=== PATIENT | female | born 1935 | race Caucasian/White ===

== ENCOUNTER 2017-06-24 14:56 | Inpatient (IN) ==
--- NOTE | 2017-06-24 16:55 | Emergency Department Note ---
Disposition Clinical Impression: Sinus bradycardia, persistent, Hyponatremia, Chronic kidney disease, stage III (moderate) Syncope Qualifiers: Syncope type: unspecified Qualified Code(s): R55 - Syncope and collapse COPD (chronic obstructive pulmonary disease) Qualifiers: COPD type: unspecified COPD Qualified Code(s): J44.9 - Chronic obstructive pulmonary disease, unspecified Disposition: Admitted As Inpatient Referrals: Abbi Lemon DO [Primary Care Provider] - Forms: ED Satisfaction Letter General Adult HPI - General Chief complaint: ED Dizziness Stated complaint: Dizzy/Nausea/Low HR Time Seen by Provider: 06/24/17 16:41 Source: patient, family Mode of arrival: wheelchair Limitations: no limitations Nursing Notes Reviewed: Yes Vital Signs Reviewed: Yes - History of Present Illness HPI Narrative: Patient is an 81-year-old white female with a history of hypertension hyperlipidemia, COPD, coronary artery disease with prior IN who is brought to the emergency department today from her extended care facility after she had a syncopal episode in the dining room while having lunch today. Patient states this morning she was feeling fine and had no complaints she has actually been participating in therapy and doing quite well over the past 3-4 days and then during her regular morning blood pressure check one of the nurses noticed that her blood pressure was elevated they report 180s over 1 teens. She states she was given a dose of clonidine in addition to her normal medications that she takes in the morning for blood pressure. Patient states she was hungry so she ambulated down to the cafeteria and was sitting starting to E her tray when she had a syncopal episode. Patient reports that when she awoke the nurse was there next to her she had not fallen out of her chair sustained any trauma. Patient states that just before the episode she felt a sudden substernal chest tightening sensation that was nonradiating. She denied any diaphoresis, no shortness of breath at that time, no radiation to the back or abdomen. No fevers chills or preceding URI symptoms. Patient states now currently she is not having any pain pressure or heaviness in her chest but she just feels mild shortness of breath at rest. Patient is bradycardic here with a stable blood pressure and in no acute distress. Patient's daughters at bedside and states that about 10 days ago she had mild cold and congestion and a transient episode of some vomiting that lasted for approximately 24-36 hours and resolved but has been doing well since that time. Pain Scale: 0 - Related Data Home Medications Medication Instructions Recorded Confirmed Atorvastatin Calcium [Lipitor] 20 mg PO HS 06/29/15 06/24/17 Clopidogrel [Plavix] 75 mg PO DAILY 06/29/15 06/24/17 Isosorbide DInitrate [Isosorbide 10 mg PO TID 06/29/15 06/24/17 Dinitrate] Losartan Potassium [Cozaar] 100 mg PO DAILY 06/29/15 06/24/17 Metoprolol XL (24 HR) Succ [Toprol 25 mg PO DAILY 06/29/15 06/24/17 Xl] Nitroglycerin [Nitrostat] 0.4 mg SL Q5M PRN 06/29/15 06/24/17 amLODIPine [Norvasc] 5 mg PO DAILY 06/29/15 06/24/17 cloNIDine HCl [Clonidine HCl] 0.2 mg PO Q8H PRN 06/29/15 06/24/17 Cholecalciferol (D-3) [Vitamin D] 2,000 unit PO DAILY 01/22/16 06/24/17 Acetaminophen [Tylenol] 325 mg PO PER PKG DI PRN 06/24/17 06/24/17 Aspirin Enteric Coated [Aspirin EC] 325 mg PO DAILY 06/24/17 06/24/17 Benzonatate [Tessalon] 100 mg PO TID PRN 06/24/17 06/24/17 Cetirizine HCl [Zyrtec] 10 mg PO DAILY 06/24/17 06/24/17 Ibuprofen [Motrin] 200 mg PO PER PKG DI PRN 06/24/17 06/24/17 Loperamide HCl [Imodium A-D] 2 mg PO PER PKG DI PRN 06/24/17 06/24/17 Loratadine [Claritin] 10 mg PO DAILY 06/24/17 06/24/17 MOM Conc [Milk of Magnesia Conc] 30 ml PO PER PKG DI PRN 06/24/17 06/24/17 Mag Hydrox/Al Hydrox/Simeth 15 ml PO PER PKG DI PRN 06/24/17 06/24/17 [Antacid Suspension] [place]row-3/Dha/Epa/Fish Oil [Fish Oil 1,000 mg PO DAILY 06/24/17 06/24/17 1,000 mg Softgel] Ranitidine HCl [Zantac] 150 mg PO BID 06/24/17 06/24/17 Triamcinolone Acet 0.1% CRM 1 appl TP BID PRN 06/24/17 06/24/17 [Kenalog] Allergies Allergy/AdvReac Type Severity Reaction Status Date / Time diphenhydramine Allergy Hives Verified 06/24/17 17:06 [From Benadryl Allergy] penicillin V Allergy Rash Verified 06/24/17 17:06 Albumin Colloid, Human AdvReac See Verified 06/24/17 19:24 Comments albuterol AdvReac See Verified 06/24/17 19:24 Comments Corticosteroids AdvReac See Verified 06/24/17 19:24 (Glucocorticoids) Comments latex AdvReac See Verified 06/24/17 19:24 Comments lidocaine AdvReac See Verified 06/24/17 19:24 Comments metoclopramide [From Reglan] AdvReac Numbness Verified 06/24/17 17:06 ivp Allergy See Uncoded 06/24/17 17:06 Comments All systems ED: reviewed and negative except as stated. Review of Systems: As Per HPI Constitutional: Denies: fever, chills, weakness Eyes: Denies: vision change ENT ED: Denies: congestion Cardiovascular: Reports: chest pain, syncope. Denies: palpitations, dyspnea on exertion, orthopnea, edema, paroxysmal nocturnal dyspnea Respiratory: Reports: dyspnea. Denies: cough, wheezes, hemoptysis, stridor, sputum production Gastrointestinal: Denies: abdominal pain, nausea, vomiting, diarrhea Genitourinary: Denies: urgency, dysuria, frequency Musculoskeletal: Denies: back pain, neck pain Integumentary: Denies: rash Neurological: Denies: headache, weakness, numbness, paresthesias, confusion, vertigo Past Medical History - Past Medical History Medical history: Reports: aortic aneurysm, COPD, hepatitis, hyperlipidemia, hypertension, myocardial infarction Surgical history: Reports: other Psychiatric history: Reports: bipolar - Social History Smoking Status: Former smoker Smokeless Tobacco Status: No Alcohol use: Reports: none Drug use: Reports: none Physical Exam - General Limitations: no limitations General appearance: alert, in no apparent distress - Head Head exam: atraumatic, normocephalic, normal inspection - Eye Eye exam: Present: normal appearance, PERRL, EOMI. Absent: scleral icterus - ENT ENT exam: normal exam, normal oropharynx, mucous membranes moist, TM's normal bilaterally - Neck Neck exam: Present: normal inspection, full ROM. Absent: lymphadenopathy, thyromegaly - Chest Chest inspection: Present: normal inspection, symmetric chest wall rise. Absent : tenderness - Respiratory Respiratory exam: Present: normal lung sounds bilaterally. Absent: respiratory distress, wheezes, stridor, accessory muscle use - Cardiovascular Cardiovascular exam: Present: normal rhythm, bradycardia, normal heart sounds - Abdominal Exam Abdominal exam: Present: soft, Non-Tender, normal bowel sounds. Absent: tenderness, distention, guarding, rebound - Extremities Exam Extremities exam: Present: normal inspection, normal capillary refill. Absent: tenderness, pedal edema, calf tenderness - Back Exam Back exam: Present: normal inspection. Absent: tenderness, CVA tenderness (R), CVA tenderness (L), paraspinal tenderness, vertebral tenderness - Neurological Exam Neurological exam: Present: alert, oriented X3, CN II-XII intact, reflexes normal. Absent: motor sensory deficit - Psychiatric Psychiatric exam: Present: normal affect, normal mood - Skin Skin exam: Present: warm, dry, intact, normal color. Absent: cyanosis, diaphoresis Course Course Narrative: Patient's age 81-year-old white female with multiple medical problems including coronary artery disease, hypertension, hyperlipidemia, COPD who presents to the emergency room today with complaints of a syncopal episode following additional blood pressure demonstration. He is bradycardic but with a stable blood pressure here in the ED and currently asymptomatic. EKG does not show any new concerns for ischemia. We will continue to monitor closely obtain lab evaluation, chest x-ray and had due to her history of thoracic aortic aneurysm we may proceed with additional CT imaging. Patient states she did take all of her scheduled medications this morning including a full baby aspirin. Vital Signs Temperature 97.8 F 06/24/17 15:06 Pulse Rate 52 06/24/17 15:06 Respiratory Rate 18 06/24/17 15:06 Blood Pressure 124/78 06/24/17 15:06 O2 Sat by Pulse Oximetry 95 06/24/17 15:06 Temperature 97.8 F 06/24/17 15:06 Pulse Rate 45 06/24/17 19:01 Respiratory Rate 20 01/23/18 19:01 Blood Pressure 129/74 06/24/17 19:01 O2 Sat by Pulse Oximetry 96 06/24/17 19:01 Oxygen Delivery Oxygen Delivery Room Air Medical Decision Making - MDM Narrative Medical decision making narrative: 81-year-old white female brought to the emergency room today after a syncopal episode at her extended care facility while sitting and having lunch. Patient had associated substernal chest pressure at the time preceding the syncopal event. Patient has been chest pain-free and resting comfortably in the ED throughout her ED course. Patient is receiving IV fluids at this time and remains bradycardic but with a stable blood pressure. Patient's laboratory evaluation appears fairly unremarkable she has a mild hyponatremia that were dressing with IV fluids otherwise troponin and cardiac labs are within normal limits hemoglobin is stable and urinalysis does not show any sign of infection. Chest x-ray showed a questionable infiltrate in the right middle lobe so patient went for CTA which was negative for any lung infiltrate or infectious process which goes more along her clinical presentation. Patient does have a thoracic aortic aneurysm which was found to be stable. At this time I feel the patient would benefit from admission for further evaluation of syncopal episode and ongoing bradycardia. I will speak with the hospitalist to admit the patient for further evaluation and management. - Medical Records Medical records reviewed: Yes I reviewed the patient's medical records. - Lab Data Lab results reviewed: Yes I reviewed the patient's lab results. Result diagrams: 06/24/17 17:41 06/24/17 17:01 Lab Results 06/24/17 06/24/17 06/24/17 Range/Units 17:01 17:01 17:01 WBC (4.3-11.1) K/mcL RBC (3.82-4.97) M/mcL Hgb (11.5-15.4) g/dL Hct (35.3-44.9) % MCV (83.0-100.0) fL MCH (28.0-33.3) pg MCHC (31.6-35.5) g/dL RDW (11.5-14.5) % Plt Count (140-400) K/mcL MPV (9.4-12.4) fL Immature Gran % (0-4) % Seg Neutrophils % % Lymphocytes % % Monocytes % % Eosinophils % % Basophils % % Neutrophils # (1.6-8.9) K/mcL Lymphocytes # (0.6-4.6) K/mcL Monocytes # (0.0-1.3) K/mcL Eosinophils # (0.0-0.6) K/mcL Basophils # (0.0-0.2) K/mcL Nucleated RBCs/100 WBC (0) /100 WBC Sodium 128 L (136-145) mEq/L Potassium 5.3 H (3.5-5.1) mEq/L Chloride 98 (98-107) mEq/L Carbon Dioxide 24 (23-29) mEq/L BUN 25 H (8-23) mg/dL Creatinine 0.97 (0.60-1.20) mg/dL Est GFR ( Amer) > 60 (> 60) Est GFR (Non-Af Amer) 55 L (> 60) BUN/Creatinine Ratio 26 (6-26) Glucose 112 H (70-105) mg/dL Calculated Osmolality 271 L (280-300) Calcium 9.8 (8.6-10.3) mg/dL Troponin I < 0.03 (< 0.04) ng/mL TSH 1.587 (0.340-5.600) mcIU/mL Urine Color (Yellow) Urine Clarity (Clear) Urine pH (5.0-8.0) pH Units Ur Specific Conroy (1.010-1.025) Urine Protein (Neg-Trace) mg/dL Urine Glucose (UA) (Normal) mg/dL Urine Ketones (Negative) mg/dL Urine Blood (Negative) Urine Nitrite (Negative) Urine Bilirubin (Negative) Urine Urobilinogen (Normal) mg/dL Ur Leukocyte Esterase (Negative) Urine Microscopic RBC (0-3) per hpf Urine Microscopic WBC (0-3) per hpf Ur Squamous Epith Cells (None-Few) per lpf Urine Bacteria (None-Few) per hpf Hyaline Casts (None-Few) per lpf Ur Culture Indicated? (NO) Specimen Rejected 06/24/17 06/24/17 06/24/17 Range/Units 17:01 17:41 18:01 WBC 5.9 (4.3-11.1) K/mcL RBC 4.13 (3.82-4.97) M/mcL Hgb 13.1 (11.5-15.4) g/dL Hct 38.1 (35.3-44.9) % MCV 92.3 (83.0-100.0) fL MCH 31.7 (28.0-33.3) pg MCHC 34.4 (31.6-35.5) g/dL RDW 13.1 (11.5-14.5) % Plt Count 161 (140-400) K/mcL MPV 9.5 (9.4-12.4) fL Immature Gran % 0.3 (0-4) % Seg Neutrophils % 67.0 % Lymphocytes % 24.0 % Monocytes % 7.0 % Eosinophils % 1.2 % Basophils % 0.5 % Neutrophils # 3.9 (1.6-8.9) K/mcL Lymphocytes # 1.4 (0.6-4.6) K/mcL Monocytes # 0.4 (0.0-1.3) K/mcL Eosinophils # 0.1 (0.0-0.6) K/mcL Basophils # 0.0 (0.0-0.2) K/mcL Nucleated RBCs/100 WBC 0.3 H (0) /100 WBC Sodium (136-145) mEq/L Potassium (3.5-5.1) mEq/L Chloride (98-107) mEq/L Carbon Dioxide (23-29) mEq/L BUN (8-23) mg/dL Creatinine (0.60-1.20) mg/dL Est GFR ( Amer) (> 60) Est GFR (Non-Af Amer) (> 60) BUN/Creatinine Ratio (6-26) Glucose (70-105) mg/dL Calculated Osmolality (280-300) Calcium (8.6-10.3) mg/dL Troponin I (< 0.04) ng/mL TSH (0.340-5.600) mcIU/mL Urine Color Yellow (Yellow) Urine Clarity Cloudy A (Clear) Urine pH 6.5 (5.0-8.0) pH Units Ur Specific [place]roy 1.016 (1.010-1.025) Urine Protein Trace (Neg-Trace) mg/dL Urine Glucose (UA) Normal (Normal) mg/dL Urine Ketones Negative (Negative) mg/dL Urine Blood Negative (Negative) Urine Nitrite Negative (Negative) Urine Bilirubin Negative (Negative) Urine Urobilinogen Normal (Normal) mg/dL Ur Leukocyte Esterase Moderate H (Negative) Urine Microscopic RBC 3-5 H (0-3) per hpf Urine Microscopic WBC 30-50 H (0-3) per hpf Ur Squamous Epith Cells Many H (None-Few) per lpf Urine Bacteria None Seen (None-Few) per hpf Hyaline Casts Few (None-Few) per lpf Ur Culture Indicated? NO. (NO) Specimen Rejected Clotted - Radiology Data Radiology results reviewed: Yes I reviewed the patient's radiology results. Chest X-Ray 06/24/17 15:11 IMPRESSION: Linear infiltrates at the right lung base with elevation of the right hemidiaphragm could represent subsegmental atelectasis or possibly pneumonia. Otherwise, stable chest. D/ / 06/24/2017 17:14:23 Eliazar Aldrich MD / [facility] Interpreting Provider: Eliazar Aldrich MD Chest CT 06/24/17 17:14 IMPRESSION: 1. No acute pulmonary infiltrate. Eventration of the right anterior hemidiaphragm, increased from the comparison study. Mild bibasilar atelectasis. 2. Stable ectasia and atherosclerotic changes within the thoracic aorta. Maximum aortic diameter 3.9 cm in the ascending aorta. 3. Atherosclerotic calcification in the coronary circulation. D/ / 06/24/2017 18:31:15 Manoj Guidry MD / [facility] Interpreting Provider: Manoj Guidry MD - EKG Data EKG #1 EKG results narrative: EKG was obtained at 1518 and was signed off by Dr. Nicholson initially as the patient was in the waiting room area my interpretation EKG shows a sinus bradycardia at 50 bpm with a right bundle branch block patient with appropriate T-wave discordance and no significant changes in her EKG when compared to her prior EKG that was done 01/22/2016.
[2017-06-24] MEDS ORDERED: 0.9 % Sodium Chloride 500 ML IVC ONE (17:34)
[2017-06-24 17:45] LABS: BUN/Creatinine Ratio 26 (6-26); Blood Urea Nitrogen 25 mg/dL (8-23); Calcium 9.8 mg/dL (8.6-10.3); Carbon Dioxide 24 mEq/L (23-29); Chloride 98 mEq/L (98-107); Glucose 112 mg/dL (70-105); Osmolality,Calculated 271 (280-300); Potassium 5.3 mEq/L (3.5-5.1); Sodium 128 mEq/L (136-145); eGFR For African Americans > 60 (> 60); eGFR For Non-African Americans 55 (> 60)
[2017-06-24 18:15] LABS: Basophils % 0.5 %; Eosinophils # 0.1 K/mcL (0.0-0.6); Eosinophils % 1.2 %; Hematocrit 38.1 % (35.3-44.9); Hemoglobin 13.1 g/dL (11.5-15.4); Immature Granulocytes % 0.3 % (0-4); Lymphocytes # 1.4 K/mcL (0.6-4.6); Mean Corpuscular HGB Conc 34.4 g/dL (31.6-35.5); Mean Corpuscular Hemoglobin 31.7 pg (28.0-33.3); Mean Corpuscular Volume 92.3 fL (83.0-100.0); Mean Platelet Volume 9.5 fL (9.4-12.4); Monocytes # 0.4 K/mcL (0.0-1.3); Neutrophils # 3.9 K/mcL (1.6-8.9); Nucleated Red Blood Cells 0.3 /100 WBC (0); Platelet Count 161 K/mcL (140-400); Red Blood Count 4.13 M/mcL (3.82-4.97); Red Cell Distribution Width 13.1 % (11.5-14.5)
[2017-06-24 18:20] LABS: Bilirubin,Urine Negative (Negative); Blood,Urine Negative (Negative); Clarity,Urine Cloudy (Clear); Color,Urine Yellow (Yellow); Glucose,Urine (UA) Normal (Normal); Ketones,Urine Negative (Negative); Leukocyte Esterase,Urine Moderate (Negative); Nitrite,Urine Negative (Negative); PH,Urine 6.5 pH Units (5.0-8.0); Protein,Urine Trace mg/dL (Neg-Trace); Specific Gravity,Urine 1.016 (1.010-1.025); Urobilinogen,Urine Normal (Normal)
[2017-06-24 18:24] LABS: Bacteria,Urine None Seen per hpf (None-Few); Hyaline Casts,Urine Few per lpf (None-Few); Squamous Epithelial Cell,Urine Many per lpf (None-Few); WBC,Urine 30-50 per hpf (0-3)
--- NOTE | 2017-06-24 21:03 | Internal Med History&Physical ---
<Eliazar Quispe - Last Filed: 06/24/17 22:06> Date of Encounter: 06/24/17 Time of Encounter: 20:45 Assessment and Plan (1) Pre-syncope Current visit: Yes Status: Acute Presyncope, orthostatic hypotension vs. symptomatic bradycardia Patient had blackened vision that she nearly passed out She has no further symptoms at this time, but remains bradycardic Trend troponins, repeat EKG in the morning, TTE in the morning, carotid ultrasounds bilaterally in the morning Patient also has abnormal electrolytes and we will correct Cardiac monitoring and O2 monitoring PT OT eval in the morning (2) Urinary tract infection Current visit: Yes Status: Acute UTI seen on UA without hematuria Patient has increased frequency May contribute to generalized weakness I will start the patient on rocephin Qualifiers: Urinary tract infection type: acute cystitis Hematuria presence: without hematuria Qualified Code(s): N30.00 - Acute cystitis without hematuria (3) Hyponatremia Current visit: Yes Status: Acute Hyponatremia with decreased serum osmolality There may be some history of CHF, so I'm hesitant to give IVF due to possible fluid overload I will give the patient a regular diet to encourage oral intake of sodium Re-evaluate in the morning (4) Hyperkalemia Current visit: Yes Status: Acute Elevated serum potassium 5.3 The patient is not having symptoms or cardiac disturbances I will give the patient 1/2 dose of Kayexelate Continue cardiac monitoring (5) Bradycardia Current visit: Yes Status: Acute Symptomatic bradycardia, HR ~45bpm Patient had elevated BP and took clonidine, BP apparently dropped and HR dropped Due to possible syncope, I will hold BB to elevate HR (6) Essential hypertension Current visit: No Status: Chronic Hypertension, poorly controlled Continue patient's home meds Hold BB + Clonidine due to possible symptomatic hypotension Goal SBP <150 (7) CAD (coronary artery disease) Current visit: No Status: Chronic CAD s/p MIs Continue home meds with exception of BB at this time due to symptomatic bradycardia Consider Cardiology consult in the morning Qualifiers: Coronary Disease-Associated Artery/Lesion type: [place] artery [place] vs. transplanted heart: [place] heart Associated angina: angina presence unspecified Qualified Code(s): I25.10 - Atherosclerotic heart disease of [place] coronary artery without angina pectoris (8) COPD (chronic obstructive pulmonary disease) Current visit: Yes Status: Chronic Stable, Continue home meds O2 monitoring with O2 titration as needed Qualifiers: COPD type: unspecified COPD Qualified Code(s): J44.9 - Chronic obstructive pulmonary disease, unspecified (9) Mixed hyperlipidemia Current visit: No Status: Chronic Continue Statin (10) DVT prophylaxis Current visit: No Status: Acute SQ Heparin Internal Medicine - H&P: HPI Chief complaint: Near Syncope Admitted From: Emergency Dept Plans for Post Hospital Care: Transfer Chargeback Specialist Care History of present illness: Ms. Gonzalez is a 81 year old female with history of HTN, HLD, COPD, CAD w/ previous OR and thoracic aortic aneurysm s/p surgical correction who presented to the ED with a near syncopal episode earlier this afternoon while eating lunch. She says that she was sitting in the cafeteria and her vision went black and she became nauseated. She did not lose consciousness, but felt that she might pass out. She says that she has had syncope in the past, which was associated with her previous OR. In addition to this near syncopal event, the patient says that she developed mild substernal chest pain that was dull in character and 3-4/10 in severity. It lasted for a few moments and was associated with SOB, which then resolved. She is concerned that this may have something to do with her blood pressure, which she says has been very difficult to control recently. She says that earlier today she had a BP of 180/110, at which time a nurse from her facility gave her a clonidine. She says that she was recently ill with "the flu" about a week and a half ago, which consisted of congestion with nausea and vomiting. She has no acute pain at this time, and she says that she is otherwise doing well. She does admit to generalized weakness in her legs which has been relatively chronic. Finally, she does admit to increased urinary frequency for several days. She has no other acute complaints. Past Med Surg Social Fam HX - Past Medical History Medical history: aortic aneurysm, COPD, hepatitis, hyperlipidemia, hypertension , myocardial infarction Psychiatric history: bipolar - Past Surgical History Surgical History: other - Social History Smoking Status: Former smoker Smokeless Tobacco Status: No Alcohol use: none Drug use: none Internal Medicine - H&P: Meds Atorvastatin Calcium [Lipitor] 20 mg PO HS 06/29/15 [History] Clopidogrel [Plavix] 75 mg PO DAILY 06/29/15 [History] Isosorbide DInitrate [Isosorbide Dinitrate] 10 mg PO TID 06/29/15 [History] Losartan Potassium [Cozaar] 100 mg PO DAILY 06/29/15 [History] Metoprolol XL (24 HR) Succ [Toprol Xl] 25 mg PO DAILY 06/29/15 [History] Nitroglycerin [Nitrostat] 0.4 mg SL Q5M PRN 06/29/15 [History] amLODIPine [Norvasc] 5 mg PO DAILY 06/29/15 [History] cloNIDine HCl [Clonidine HCl] 0.2 mg PO Q8H PRN 06/29/15 [History] Cholecalciferol (D-3) [Vitamin D] 2,000 unit PO DAILY 01/22/16 [History] Acetaminophen [Tylenol] 325 mg PO PER PKG DI PRN 06/24/17 [History] Aspirin Enteric Coated [Aspirin EC] 325 mg PO DAILY 06/24/17 [History] Benzonatate [Tessalon] 100 mg PO TID PRN 06/24/17 [History] Cetirizine HCl [Zyrtec] 10 mg PO DAILY 06/24/17 [History] Ibuprofen [Motrin] 200 mg PO PER PKG DI PRN 06/24/17 [History] Loperamide HCl [Imodium A-D] 2 mg PO PER PKG DI PRN 06/24/17 [History] Loratadine [Claritin] 10 mg PO DAILY 06/24/17 [History] MOM Conc [Milk of Magnesia Conc] 30 ml PO PER PKG DI PRN 06/24/17 [History] Mag Hydrox/Al Hydrox/Simeth [Antacid Suspension] 15 ml PO PER PKG DI PRN [History] [place]-3/Dha/Epa/Fish Oil [Fish Oil 1,000 mg Softgel] 1,000 mg PO DAILY 06/24/17 [History] Ranitidine HCl [Zantac] 150 mg PO BID 06/24/17 [History] Triamcinolone Acet 0.1% CRM [Kenalog] 1 appl TP BID PRN 06/24/17 [History] 3 Allergy/AdvReac Type Severity Reaction Status Date / Time diphenhydramine Allergy Hives Verified 06/24/17 17:06 [From Benadryl Allergy] penicillin V Allergy Rash Verified 06/24/17 17:06 Albumin Colloid, Human AdvReac See Verified 06/24/17 19:24 Comments albuterol AdvReac See Verified 06/24/17 19:24 Comments Corticosteroids AdvReac See Verified 06/24/17 19:24 (Glucocorticoids) Comments latex AdvReac See Verified 06/24/17 19:24 Comments lidocaine AdvReac See Verified 06/24/17 19:24 Comments metoclopramide [From Reglan] AdvReac Numbness Verified 06/24/17 17:06 ivp Allergy See Uncoded 06/24/17 17:06 Comments All Systems PM: A 10-system review of systems was performed and is negative for pertinent findings except as documented above in the HPI. Review of systems: Constitutional: Denies fevers, chills, weight loss Head/Neck: Denies MOB[place], neck stiffness EENT: Denies vision changes/blurriness, rhinorrhea, congestion, sore throat. CVS: Admits to Chest pain throughout this event which resolved Pulm: Admits to SOB with chest pain earlier, Denies cough, sputum, hematemesis, wheezing GI: Denies abdominal pain, vomiting, diarrhea, constipation, melena : Admits to frequency, Denies dysuria, urgency, hematuria Heme: Denies ease of bleeding or bruising MSK: Denies joint pain, limited ROM Skin: Denies rashes, ulcers, color changes Neuro: Denies MOBLEY, paresthesias, focal deficits, ataxia - Constitutional Vitals: Temp Pulse Resp BP Pulse Ox 97.8 F 47 16 125/79 96 06/24/17 15:06 06/24/17 20:00 06/24/17 20:00 06/24/17 20:00 06/24/17 20:00 Exam: Gen.: Vitals noted. No acute distress. AAOx3 HEENT: PERRL/EOMI, oropharynx clear, Normocephalic, atraumatic Neck: Supple. No adenopathy. Cardiac: RRR but slow, no murmur, +S1/S2 Pulmonary: Bibasilar crackles with severely diminished lung sounds on the left Abdomen: soft, nontender, BS noted, no guarding Back: Nontender throughout. MSK: ROM intact, no joint swelling noted Extremities: 1+ LE edema b/l, nontender calf, no cyanosis or clubbing Neuro: A&Ox3, moves all extremities, no focal deficits Psych: Flat affect Internal Med - H&P Results - Labs CBC & Chem 7: 06/24/17 17:41 06/24/17 17:01 Labs: Short CBC 06/24/17 Range/Units 17:41 WBC 5.9 (4.3-11.1) K/mcL Hgb 13.1 (11.5-15.4) g/dL Hct 38.1 (35.3-44.9) % Plt Count 161 (140-400) K/mcL Neutrophils # 3.9 (1.6-8.9) K/mcL BMP 06/24/17 17:01 Sodium 128 L Potassium 5.3 H Chloride 98 Carbon Dioxide 24 BUN 25 H Creatinine 0.97 Glucose 112 H Calcium 9.8 Cardiac Enzymes 06/24/17 Range/Units 17:01 Troponin I < 0.03 (< 0.04) ng/mL Urine 06/24/17 Range/Units 18:01 Urine Color Yellow (Yellow) Urine Clarity Cloudy A (Clear) Urine pH 6.5 (5.0-8.0) pH Units Ur Specific [place] 1.016 (1.010-1.025) Urine Protein Trace (Neg-Trace) mg/dL Urine Glucose (UA) Normal (Normal) mg/dL - Impressions ITS Impressions Chest X-Ray 06/24/17 15:11 IMPRESSION: Linear infiltrates at the right lung base with elevation of the right hemidiaphragm could represent subsegmental atelectasis or possibly pneumonia. Otherwise, stable chest. D/ / 06/24/2017 17:14:23 Eliazar Aldrich MD / [email or web address] Interpreting Provider: Eliazar Aldrich MD Chest CT 06/24/17 17:14 IMPRESSION: 1. No acute pulmonary infiltrate. Eventration of the right anterior hemidiaphragm, increased from the comparison study. Mild bibasilar atelectasis. 2. Stable ectasia and atherosclerotic changes within the thoracic aorta. Maximum aortic diameter 3.9 cm in the ascending aorta. 3. Atherosclerotic calcification in the coronary circulation. D/ / 06/24/2017 18:31:15 Manoj Guidry MD / [email or web address] Interpreting Provider: Manoj Guidry MD <Alejandro Zavala - Last Filed: 06/25/17 05:32> Date of Encounter: 06/25/17 Internal Medicine - H&P: HPI History of present illness: Ms. Gonzalez is a 81 year old female All Systems PM: A 10-system review of systems was performed and is negative for pertinent findings except as documented above in the HPI. - Constitutional Vitals: Temp Pulse Resp BP Pulse Ox 98.6 F 47 14 128/75 96 06/25/17 03:52 06/25/17 03:52 06/25/17 03:52 06/25/17 03:52 06/25/17 03:52 Internal Med - H&P Results - Labs CBC & Chem 7: 06/25/17 00:22 06/25/17 00:22 Labs: Short CBC 06/25/17 Range/Units 00:22 WBC 4.6 (4.3-11.1) K/mcL Hgb 12.3 (11.5-15.4) g/dL Hct 35.5 (35.3-44.9) % Plt Count 145 (140-400) K/mcL Neutrophils # 2.1 (1.6-8.9) K/mcL BMP 06/25/17 00:22 Sodium 132 L Potassium 4.5 Chloride 102 Carbon Dioxide 24 BUN 26 H Creatinine 0.87 Glucose 88 Calcium 8.9 Cardiac Enzymes 06/25/17 Range/Units 00:22 Troponin I < 0.03 (< 0.04) ng/mL - Attending Attestation I have seen and examined the patient independently. I have discussed with resident physician Dr. Quispe regarding the management plan. Agree with the documentation.
[2017-06-24] MEDS ORDERED: Ondansetron 4 MG/2 ML VIAL IVP PRN (21:12)
[2017-06-24] MEDS ORDERED: Naloxone 0.4 MG/ML INJ IVP PRN (21:12)
[2017-06-24] MEDS ORDERED: Benzonatate 100 MG CAPSULE PO PRN (21:20)
[2017-06-24] MEDS ORDERED: Triamcinolone Acet 0.1% CRM 15 GM TUBE TP PRN (21:20)
[2017-06-24] MEDS ORDERED: Nitroglycerin 0.4 MG TAB.SUBL SL PRN (21:20)
[2017-06-25 00:57] LABS: Basophils % 0.4 %; Eosinophils # 0.2 K/mcL (0.0-0.6); Eosinophils % 3.3 %; Hematocrit 35.5 % (35.3-44.9); Hemoglobin 12.3 g/dL (11.5-15.4); Immature Granulocytes % 0.2 % (0-4); Lymphocytes # 1.8 K/mcL (0.6-4.6); Lymphocytes % 39.5 %; Mean Corpuscular HGB Conc 34.6 g/dL (31.6-35.5); Mean Corpuscular Hemoglobin 31.6 pg (28.0-33.3); Mean Corpuscular Volume 91.3 fL (83.0-100.0); Mean Platelet Volume 9.8 fL (9.4-12.4); Monocytes # 0.5 K/mcL (0.0-1.3); Monocytes % 10.5 %; Neutrophils # 2.1 K/mcL (1.6-8.9); Platelet Count 145 K/mcL (140-400); Red Blood Count 3.89 M/mcL (3.82-4.97); Red Cell Distribution Width 13.2 % (11.5-14.5); Segmented Neutrophils % 46.1 %
[2017-06-25] MEDS ORDERED: cefTRIAXone 1,000 MG in Water for inj. (sterile) 20 ML 10 ML IVPB ONE (01:00)
[2017-06-25 04:05] LABS: BUN/Creatinine Ratio 30 (6-26); Blood Urea Nitrogen 26 mg/dL (8-23); Calcium 8.9 mg/dL (8.6-10.3); Carbon Dioxide 24 mEq/L (23-29); Chloride 102 mEq/L (98-107); Glucose 88 mg/dL (70-105); Osmolality,Calculated 278 (280-300); Potassium 4.5 mEq/L (3.5-5.1); Sodium 132 mEq/L (136-145); eGFR For African Americans > 60 (> 60); eGFR For Non-African Americans > 60 (> 60)
[2017-06-25] MEDS: *HR* Heparin 5,000 UNIT/ML VIAL SQ SCH ×2 (05:15→17:00)
--- NOTE | 2017-06-25 08:21 | Electrocardiograph Report ---
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
[2017-06-25] MEDS: amLODIPine 5 MG TABLET PO SCH (10:05)
[2017-06-25] MEDS: Pantoprazole 40 MG VIAL IVP SCH (10:06)
[2017-06-25] MEDS: Aspirin Enteric Coated 325 MG Tablet PO SCH (10:06)
--- NOTE | 2017-06-25 20:44 | Internal Med Progress Note ---
Date of Encounter: 06/25/17 Time of Encounter: 12:00 - Assessment and plan (1) Syncope Current Visit: Yes Status: Acute Assessment and plan: presented with blackened vision and nearly passed out. TTE with preserved EF, mild MR. Carotid dopplers normal. Suspect secondary to bradycardia. Home BB stopped. Monitor on tele. Consider holter monitor at discharge Qualifiers: Syncope type: unspecified Qualified Code(s): R55 - Syncope and collapse (2) Urinary tract infection Current Visit: Yes Status: Acute Assessment and plan: UTI seen on UA without hematuria; reports increased frequency. Cont IV rocephin. Follow urine cx Qualifiers: Urinary tract infection type: acute cystitis Hematuria presence: without hematuria Qualified Code(s): N30.00 - Acute cystitis without hematuria (3) CAD (coronary artery disease) Current Visit: No Status: Chronic Assessment and plan: per hx. Denies CP. Cont home medication Qualifiers: Coronary Disease-Associated Artery/Lesion type: [place] artery [place] vs. transplanted heart: [place] heart Associated angina: angina presence unspecified Qualified Code(s): I25.10 - Atherosclerotic heart disease of [place] coronary artery without angina pectoris (4) Essential hypertension Current Visit: No Status: Chronic Assessment and plan: per hx. BP controlled. Cont home amlodipine, ARB. Holding BB with bradycardia (5) DVT prophylaxis Current Visit: No Status: Acute Assessment and plan: heparin (6) Hyperkalemia Current Visit: Yes Status: Acute Assessment and plan: K 5.3 on arrival. Resolved with kayexalate (7) Hyponatremia Current Visit: Yes Status: Acute Assessment and plan: Na 128 on arrival. Neurologically intact. Na improved with liberalizing diet. Cont to monitor - Subjective Interval history: Seen and examined at bedside, patient is new to me. Information obtained from chart review and patient report.Patient says she feels better, says she is weak and tired but overall improved. No P or SOB - Constitutional Vitals: Temp Pulse Resp BP Pulse Ox 98.6 F 54 17 122/66 95 06/25/17 18:48 06/25/17 18:48 06/25/17 18:48 06/25/17 18:48 06/25/17 18:48 General appearance: Present: A&O X 3, no acute distress - Head Head exam: Present: atraumatic, normocephalic - Eye Eye exam: Present: PERRL, conjuntiva pink, sclera anicteric Pupils: Present: PERRL - Neck Neck exam general surgery: Present: supple, trachea midline. Absent: lymphadenopathy - Respiratory Respiratory exam: Present: CTAB. Absent: accessory muscle use, rales, rhonchi, wheezes - Cardiovascular Cardiovascular exam: Present: bradycardia, +S1, +S2. Absent: diastolic murmur, gallop, rubs, systolic murmur - GI/Abdominal GI/Abdominal exam: Present: normal bowel sounds, soft, no peritoneal signs. Absent: distended, tenderness - Extremities Exam Extremities exam: Present: warm, radial pulses palpable and symmetrical. Absent : calf tenderness, cyanotic, pedal edema - Neurological Exam Neurological exam: Present: CN II-XII intact, oriented X3, no focal deficits. Absent: pronater drift, facial droop, speech deficit - Skin Skin exam: Present: dry, intact Internal Medicine: Result - Labs CBC & Chem 7: 06/25/17 00:22 06/25/17 00:22 Labs: Short CBC 06/25/17 Range/Units 00:22 WBC 4.6 (4.3-11.1) K/mcL Hgb 12.3 (11.5-15.4) g/dL Hct 35.5 (35.3-44.9) % Plt Count 145 (140-400) K/mcL Neutrophils # 2.1 (1.6-8.9) K/mcL BMP 06/25/17 00:22 Sodium 132 L Potassium 4.5 Chloride 102 Carbon Dioxide 24 BUN 26 H Creatinine 0.87 Glucose 88 Calcium 8.9 Cardiac Enzymes 06/25/17 06/25/17 Range/Units 00:22 07:02 Troponin I < 0.03 < 0.03 (< 0.04) ng/mL - Impressions Impressions Echocardiogram 06/25/17 22:01 Impressions: LVEF 60-65%. Normal LV chamber size and function. Moderate asymmetric hypertrophy of the basal septum. No LVOT obstruction. Mild left ventricular diastolic dysfunction. Normal right ventricular structure and function. Mild mitral regurgitation. No evidence of pulmonary hypertension. Left Ventricular Wall Motion: Rest Echo Findings All wall segments showed normal motion. Findings: Study Quality * Technically adequate exam. ECG Findings * Sinus bradycardia. Left Ventricle * LVEF 60-65%. * Normal LV chamber size and function. * Moderate asymmetric hypertrophy of the basal septum. No LVOT obstruction. * Mild left ventricular diastolic dysfunction. Right Ventricle * Normal right ventricular structure and function. Left Atrium * Mildly dilated left atrium. Right Atrium * Normal right atrial size. Interatrial Septum * Interatrial septum not well evaluated. Aortic Valve * Mildly calcified aortic valve leaflets. * Trace aortic regurgitation. * No aortic stenosis. Mitral Valve * Normal mitral valve structure. * Mild mitral regurgitation. * No mitral stenosis. Tricuspid Valve * Normal tricuspid valve structure and function. * Trace tricuspid regurgitation. * No evidence of pulmonary hypertension. Pulmonic Valve * Normal pulmonic valve structure and function. * No pulmonic regurgitation. Aorta * Normally sized aortic root. Pericardium * The pericardium appears normal. IVC * Normal IVC dimensions and inspiratory collapse. Pulmonary Artery * Normal visualized portions of the main pulmonary artery. Consult Discharge Plan - Plan Referrals: Abbi Lemon DO [Primary Care Provider] -
[2017-06-26 05:43] LABS: BUN/Creatinine Ratio 28 (6-26); Blood Urea Nitrogen 20 mg/dL (8-23); Calcium 8.7 mg/dL (8.6-10.3); Carbon Dioxide 24 mEq/L (23-29); Chloride 103 mEq/L (98-107); Glucose 94 mg/dL (70-105); Osmolality,Calculated 276 (280-300); Potassium 4.1 mEq/L (3.5-5.1); Sodium 132 mEq/L (136-145); eGFR For African Americans > 60 (> 60); eGFR For Non-African Americans > 60 (> 60)
[2017-06-26] MEDS: *HR* Heparin 5,000 UNIT/ML VIAL SQ SCH (05:45)
[2017-06-26] MEDS: Aspirin Enteric Coated 325 MG Tablet PO SCH (10:01)
[2017-06-26] MEDS: Pantoprazole 40 MG VIAL IVP SCH (10:02)
[2017-06-26] MEDS: amLODIPine 5 MG TABLET PO SCH (10:02)
--- NOTE | 2017-06-26 11:22 | Discharge Summary ---
Date of Encounter: 06/26/17 Time of Encounter: 11:20 - Discharge Diagnosis (1) Pre-syncope Priority: Primary Status: Resolved Comments: presented with blackened vision and nearly passed out. TTE with EF 60%, mild diastolic dysfunction. Carotid dopplers normal. HR found to be in the 40s; suspect symptoms secondary to bradycardia. Home BB stopped. No sx recurrence while inpatient. Patient returned to baseline at time of discharge. (2) Bradycardia Priority: Primary Status: Acute Comments: With heart rates in the 40s on arrival. Suspect this is contributing to presyncope along with orthostatic hypotension. Telemetry review shows minimum heart rate 46, max heart rate 119, average heart rate 61. Heart rate improved with stopping home BB. Continue to hold BB at discharge. Consider Holter monitor if symptom recurs. (3) Essential hypertension Priority: Primary Status: Chronic Comments: per hx. BP variable but more on the soft/low side. She has orthostatic hypotension; SBP line 150s to SBP 117 standing. Decrease home ARB, continue home amlodipine. Home BB stopped due to bradycardia. BP can be monitored at a L facility. (4) Hyperkalemia Priority: Primary Status: Resolved Comments: K 5.3 on arrival. Possibly secondary to home ARB. Potassium normalized with half dose of Kayexalate. Recommend repeat CMP within 1 week with PCP. (5) Hyponatremia Priority: Primary Status: Resolved Comments: Na 128 on arrival. He remained neurologically intact. Na improved with liberalizing diet. Recommend repeat CMP with PCP within one week. (6) AAA (abdominal aortic aneurysm) without rupture Priority: Secondary Status: Chronic Comments: per hx. S/p endograft repair 07/[address] Anderson. Has IV dye allergy and therefore unable to do chest CTA, chest CT with stable AAA. Cont ASA, plavix, BP control. (7) CAD (coronary artery disease) Priority: Secondary Status: Chronic Comments: per hx. Denied CP. Cont home ASA, plavix, statin, nitrate Qualifiers: Coronary Disease-Associated Artery/Lesion type: [place] artery [place] vs. transplanted heart: [place] heart Associated angina: angina presence unspecified Qualified Code(s): I25.10 - Atherosclerotic heart disease of [place] coronary artery without angina pectoris - Discharge Medications Prescriptions: Losartan Potassium [Cozaar] 50 mg PO DAILY #30 tablet Home Medications: Atorvastatin Calcium [Lipitor] 20 mg PO HS 06/29/15 [History] Clopidogrel [Plavix] 75 mg PO DAILY 06/29/15 [History] Isosorbide DInitrate [Isosorbide Dinitrate] 10 mg PO TID 06/29/15 [History] Nitroglycerin [Nitrostat] 0.4 mg SL Q5M PRN 06/29/15 [History] amLODIPine [Norvasc] 5 mg PO DAILY 06/29/15 [History] cloNIDine HCl [Clonidine HCl] 0.2 mg PO Q8H PRN 06/29/15 [History] Cholecalciferol (D-3) [Vitamin D] 2,000 unit PO DAILY 01/22/16 [History] Acetaminophen [Tylenol] 325 mg PO PER PKG DI PRN 06/24/17 [History] Aspirin Enteric Coated [Aspirin EC] 325 mg PO DAILY 06/24/17 [History] Benzonatate [Tessalon] 100 mg PO TID PRN 06/24/17 [History] Cetirizine HCl [Zyrtec] 10 mg PO DAILY 06/24/17 [History] Ibuprofen [Motrin] 200 mg PO PER PKG DI PRN 06/24/17 [History] Loperamide HCl [Imodium A-D] 2 mg PO PER PKG DI PRN 06/24/17 [History] Loratadine [Claritin] 10 mg PO DAILY 06/24/17 [History] MOM Conc [MILK OF MAGNESIA conc] 30 ml PO PER PKG DI PRN 06/24/17 [History] Mag Hydrox/Al Hydrox/Simeth [Antacid Suspension] 15 ml PO PER PKG DI PRN [History] [place]-3/Dha/Epa/Fish Oil [Fish Oil 1,000 mg Softgel] 1,000 mg PO DAILY 06/24/17 [History] Ranitidine HCl [Zantac] 150 mg PO BID 06/24/17 [History] Triamcinolone Acet 0.1% CRM [Kenalog] 1 appl TP BID PRN 06/24/17 [History] Losartan Potassium [Cozaar] 50 mg PO DAILY #30 tablet 06/26/17 [Rx] Allergies/Adverse Reactions: 3 Allergy/AdvReac Type Severity Reaction Status Date / Time diphenhydramine Allergy Hives Verified 06/24/17 17:06 [From Benadryl Allergy] penicillin V Allergy Rash Verified 06/24/17 17:06 Albumin Colloid, Human AdvReac See Verified 06/24/17 19:24 Comments albuterol AdvReac See Verified 06/24/17 19:24 Comments Corticosteroids AdvReac See Verified 06/24/17 19:24 (Glucocorticoids) Comments latex AdvReac See Verified 06/24/17 19:24 Comments lidocaine AdvReac See Verified 06/24/17 19:24 Comments metoclopramide [From Reglan] AdvReac Numbness Verified 06/24/17 17:06 ivp Allergy See Uncoded 06/24/17 17:06 Comments Date of admission: 06/26/17 07:30 Primary care physician: Abbi Lemon DO Discharging clinician: Juli Rodriguez Anticipated date of discharge: 06/26/17 - Patient Status Disposition: Home Health Service Condition: Good Functional capacity at discharge: independent ambulation Overall status at discharge: patient is back to baseline - Discharge Instructions Instructions: Hypotension (DC), Syncope (DC), Bradycardia (DC) Follow Up With: Abbi Lemon DO [Primary Care Provider] - 07/02/17 11:00 am - Diet and Activity Activity: increase activity as tolerated Diet: advance to your usual diet Interval History: Seen and examined at bedside; says she feels better and back to baseline. We will like to discharge home today. She does report feeling lightheaded and dizzy upon standing. Educated on orthostatic hypotension and need to rise/move slowly. Agreeable to wear LATANYA hose. No chest pain or shortness of breath. Hospital course: See assessment and plan for hospital course - Time Spent with Patient Total time spent providing and/or coordinating discharge services: - Constitutional Vitals: Temp Pulse Resp BP Pulse Ox 98.7 F 51 14 132/68 96 06/26/17 06:34 06/26/17 06:34 06/26/17 06:34 06/26/17 06:34 06/26/17 06:34 General appearance: Present: A&O X 3, no acute distress - Head Head exam: Present: atraumatic, normocephalic - Eye Eye exam: Present: PERRL, conjuntiva pink, sclera anicteric Pupils: Present: PERRL - Neck Neck exam general surgery: Present: supple, trachea midline. Absent: lymphadenopathy - Respiratory Respiratory exam: Present: CTAB. Absent: accessory muscle use, rales, rhonchi, wheezes - Cardiovascular Cardiovascular exam: Present: RRR, +S1, +S2. Absent: diastolic murmur, gallop, rubs, systolic murmur - GI/Abdominal GI/Abdominal exam: Present: normal bowel sounds, soft, no peritoneal signs. Absent: distended, tenderness - Extremities Exam Extremities exam: Present: warm, radial pulses palpable and symmetrical. Absent : calf tenderness, cyanotic, pedal edema - Neurological Exam Neurological exam: Present: CN II-XII intact, oriented X3, no focal deficits. Absent: pronater drift, facial droop, speech deficit - Skin Skin exam: Present: dry, intact
[2017-06-26 11:55] VITALS: BP 167/93
--- NOTE | 2017-06-26 14:31 | Physician Discharge Referral ---
Home Health/Hosp Referral Info Transfer to: Home Health Attending Provider: uJli Rodriguez CNP Provider in Charge Post Discharge: PCP - Diagnosis (1) Pre-syncope Status: Resolved (2) Bradycardia Status: Acute (3) Essential hypertension Status: Chronic (4) Hyperkalemia Status: Resolved (5) Hyponatremia Status: Resolved (6) AAA (abdominal aortic aneurysm) without rupture Status: Chronic (7) CAD (coronary artery disease) Status: Chronic - Respiratory Orders None Smoking Cessation: Smoking cessation has been advised. For more information, call the [place] Tobacco Quit Line at 8-966-PTHJ-NOW. - Diet/Nutrition Diet/Nutrition Orders: Cardiac - Activity Activity Orders: Ambulate, Walker - Services Needed Following services are medically necessary services: Nursing, Home Health Aide, Physical Therapy, Occupational Therapy - Transfer Medications Prescriptions: Losartan Potassium [Cozaar] 50 mg PO DAILY #30 tablet Home Medications: Atorvastatin Calcium [Lipitor] 20 mg PO HS 06/29/15 [History] Clopidogrel [Plavix] 75 mg PO DAILY 06/29/15 [History] Isosorbide DInitrate [Isosorbide Dinitrate] 10 mg PO TID 06/29/15 [History] Nitroglycerin [Nitrostat] 0.4 mg SL Q5M PRN 06/29/15 [History] amLODIPine [Norvasc] 5 mg PO DAILY 06/29/15 [History] cloNIDine HCl [Clonidine HCl] 0.2 mg PO Q8H PRN 06/29/15 [History] Cholecalciferol (D-3) [Vitamin D] 2,000 unit PO DAILY 01/22/16 [History] Acetaminophen [Tylenol] 325 mg PO PER PKG DI PRN 06/24/17 [History] Aspirin Enteric Coated [Aspirin EC] 325 mg PO DAILY 06/24/17 [History] Benzonatate [Tessalon] 100 mg PO TID PRN 06/24/17 [History] Cetirizine HCl [Zyrtec] 10 mg PO DAILY 06/24/17 [History] Ibuprofen [Motrin] 200 mg PO PER PKG DI PRN 06/24/17 [History] Loperamide HCl [Imodium A-D] 2 mg PO PER PKG DI PRN 06/24/17 [History] Loratadine [Claritin] 10 mg PO DAILY 06/24/17 [History] MOM Conc [MILK OF MAGNESIA conc] 30 ml PO PER PKG DI PRN 06/24/17 [History] Mag Hydrox/Al Hydrox/Simeth [Antacid Suspension] 15 ml PO PER PKG DI PRN [History] [place]-3/Dha/Epa/Fish Oil [Fish Oil 1,000 mg Softgel] 1,000 mg PO DAILY 06/24/17 [History] Ranitidine HCl [Zantac] 150 mg PO BID 06/24/17 [History] Triamcinolone Acet 0.1% CRM [Kenalog] 1 appl TP BID PRN 06/24/17 [History] Losartan Potassium [Cozaar] 50 mg PO DAILY #30 tablet 06/26/17 [Rx] Allergies/Adverse Reactions: 3 Allergy/AdvReac Type Severity Reaction Status Date / Time diphenhydramine Allergy Hives Verified 06/24/17 17:06 [From Benadryl Allergy] penicillin V Allergy Rash Verified 06/24/17 17:06 Albumin Colloid, Human AdvReac See Verified 06/24/17 19:24 Comments albuterol AdvReac See Verified 06/24/17 19:24 Comments Corticosteroids AdvReac See Verified 06/24/17 19:24 (Glucocorticoids) Comments latex AdvReac See Verified 06/24/17 19:24 Comments lidocaine AdvReac See Verified 06/24/17 19:24 Comments metoclopramide [From Reglan] AdvReac Numbness Verified 06/24/17 17:06 ivp Allergy See Uncoded 06/24/17 17:06 Comments Certification: Further, I certify that my clinical findings support that this patient is homebound (i.e. absences from home require considerable and taxing effort and are for medical reasons or jehovah's witness services or infrequently or short duration when for other reasons) because: Homebound Reason: Patient requires assistance of a person or device to safely leave home Attestation: My signature below is to certify that this patient is under my care and that I, or nurse practitioner, or a physician's assistant professor of psychology working with me, has a face-to -face encounter with this patient.
== END 2017-06-26 15:31 | disposition home health service (06) | DRG 312 ==
LOC: EMEROO 14:56 → 3BNU 14:56
PROVIDERS: ADMIT Internal Medicine; ATTEND Registered Nurse

== ENCOUNTER 2017-07-10 16:44 | Observation (INO) ==
--- NOTE | 2017-07-10 16:50 | Emergency Department Note ---
Disposition Clinical Impression: Elevated blood pressure reading, Chest pain Disposition: Admitted As Inpatient Condition: Fair General Adult HPI - General Chief complaint: ED General Medical Stated complaint: High Blood Pressure Time Seen by Provider: 07/10/17 16:46 - Related Data Home Medications Medication Instructions Recorded Confirmed Atorvastatin Calcium [Lipitor] 20 mg PO HS 06/29/15 07/10/17 Clopidogrel [Plavix] 75 mg PO DAILY 06/29/15 07/10/17 Isosorbide DInitrate [Isosorbide 10 mg PO TID 06/29/15 07/10/17 Dinitrate] Nitroglycerin [Nitrostat] 0.4 mg SL Q5M PRN 06/29/15 07/10/17 amLODIPine [Norvasc] 5 mg PO DAILY 06/29/15 07/10/17 cloNIDine HCl [Clonidine HCl] 0.2 mg PO Q8H PRN 06/29/15 07/10/17 Cholecalciferol (D-3) [Vitamin D] 2,000 unit PO DAILY 01/22/16 07/10/17 Acetaminophen [Tylenol] 325 mg PO PER PKG DI PRN 06/24/17 07/10/17 Aspirin Enteric Coated [Aspirin EC] 325 mg PO DAILY 06/24/17 07/10/17 Ibuprofen [Motrin] 200 mg PO PER PKG DI PRN 06/24/17 07/10/17 Loperamide HCl [Imodium A-D] 2 mg PO PER PKG DI PRN 06/24/17 07/10/17 Loratadine [Claritin] 10 mg PO DAILY 06/24/17 07/10/17 MOM Conc [MILK OF MAGNESIA conc] 30 ml PO PER PKG DI PRN 06/24/17 07/10/17 Mag Hydrox/Al Hydrox/Simeth 15 ml PO PER PKG DI PRN 06/24/17 07/10/17 [Antacid Suspension] [place]-3/Dha/Epa/Fish Oil [Fish Oil 1,000 mg PO DAILY 06/24/17 07/10/17 1,000 mg Softgel] Losartan Potassium [Cozaar] 100 mg PO DAILY 07/10/17 07/10/17 Metoprolol Succinate [Toprol Xl] 25 mg PO DAILY 07/10/17 07/10/17 Allergies Allergy/AdvReac Type Severity Reaction Status Date / Time diphenhydramine Allergy Hives Verified 06/24/17 17:06 [From Benadryl Allergy] penicillin V Allergy Rash Verified 06/24/17 17:06 Albumin Colloid, Human AdvReac See Verified 06/24/17 19:24 Comments albuterol AdvReac See Verified 06/24/17 19:24 Comments Corticosteroids AdvReac See Verified 06/24/17 19:24 (Glucocorticoids) Comments latex AdvReac See Verified 06/24/17 19:24 Comments lidocaine AdvReac See Verified 06/24/17 19:24 Comments metoclopramide [From Reglan] AdvReac Numbness Verified 06/24/17 17:06 ivp Allergy See Uncoded 06/24/17 17:06 Comments Past Medical History - Past Medical History Medical history: Reports: aortic aneurysm, COPD, hepatitis, hyperlipidemia, hypertension, myocardial infarction Surgical history: Reports: other Psychiatric history: Reports: bipolar - Social History Smoking Status: Former smoker Smokeless Tobacco Status: No Alcohol use: Reports: none Drug use: Reports: none Course Vital Signs Temperature 97.0 F L 07/10/17 16:46 Pulse Rate 72 07/10/17 16:46 Respiratory Rate 20 07/10/17 16:46 Blood Pressure 177/110 07/10/17 16:46 O2 Sat by Pulse Oximetry 100 07/10/17 16:46 Temperature 98.1 F 07/10/17 21:41 Pulse Rate 56 07/10/17 21:41 Respiratory Rate 16 07/10/17 21:41 Blood Pressure 137/82 07/10/17 21:41 O2 Sat by Pulse Oximetry 99 07/10/17 21:41 Oxygen Delivery Oxygen Delivery Nasal Cannula Medical Decision Making - Lab Data Result diagrams: 07/10/17 17:13 07/10/17 17:13 Lab Results 07/10/17 07/10/17 07/10/17 Range/Units 17:13 17:13 17:13 WBC 3.6 L (4.3-11.1) K/mcL RBC 4.27 (3.82-4.97) M/mcL Hgb 13.4 (11.5-15.4) g/dL Hct 39.1 (35.3-44.9) % MCV 91.6 (83.0-100.0) fL MCH 31.4 (28.0-33.3) pg MCHC 34.3 (31.6-35.5) g/dL RDW 12.8 (11.5-14.5) % Plt Count 180 (140-400) K/mcL MPV 9.6 (9.4-12.4) fL Immature Gran % 0.3 (0-4) % Seg Neutrophils % 54.5 % Lymphocytes % 29.2 % Monocytes % 11.0 % Eosinophils % 4.4 % Basophils % 0.6 % Neutrophils # 2.0 (1.6-8.9) K/mcL Lymphocytes # 1.1 (0.6-4.6) K/mcL Monocytes # 0.4 (0.0-1.3) K/mcL Eosinophils # 0.2 (0.0-0.6) K/mcL Basophils # 0.0 (0.0-0.2) K/mcL Sodium 122 L (136-145) mEq/L Potassium 4.4 (3.5-5.1) mEq/L Chloride 92 L (98-107) mEq/L Carbon Dioxide 26 (23-29) mEq/L BUN 21 (8-23) mg/dL Creatinine 0.77 (0.60-1.20) mg/dL Est GFR ( Amer) > 60 (> 60) Est GFR (Non-Af Amer) > 60 (> 60) BUN/Creatinine Ratio 27 H (6-26) Glucose 103 (70-105) mg/dL Calculated Osmolality 257 L (280-300) Calcium 9.3 (8.6-10.3) mg/dL Troponin I (< 0.04) ng/mL B-Natriuretic Peptide 137 H (Less than 100) pg/mL 07/10/17 Range/Units 17:13 WBC (4.3-11.1) K/mcL RBC (3.82-4.97) M/mcL Hgb (11.5-15.4) g/dL Hct (35.3-44.9) % MCV (83.0-100.0) fL MCH (28.0-33.3) pg MCHC (31.6-35.5) g/dL RDW (11.5-14.5) % Plt Count (140-400) K/mcL MPV (9.4-12.4) fL Immature Gran % (0-4) % Seg Neutrophils % % Lymphocytes % % Monocytes % % Eosinophils % % Basophils % % Neutrophils # (1.6-8.9) K/mcL Lymphocytes # (0.6-4.6) K/mcL Monocytes # (0.0-1.3) K/mcL Eosinophils # (0.0-0.6) K/mcL Basophils # (0.0-0.2) K/mcL Sodium (136-145) mEq/L Potassium (3.5-5.1) mEq/L Chloride (98-107) mEq/L Carbon Dioxide (23-29) mEq/L BUN (8-23) mg/dL Creatinine (0.60-1.20) mg/dL Est GFR ( Amer) (> 60) Est GFR (Non-Af Amer) (> 60) BUN/Creatinine Ratio (6-26) Glucose (70-105) mg/dL Calculated Osmolality (280-300) Calcium (8.6-10.3) mg/dL Troponin I < 0.03 (< 0.04) ng/mL B-Natriuretic Peptide (Less than 100) pg/mL Attestation Statement - Attestation Attestation: I examined this patient and my medical decision-making was reviewed with the Resident Physician. I agree with the documented findings, disposition and treatment plan as described except to the extent set forth below. [id number] time provided in conjunction with resident physician Dr. Soni. The patient arrives by EMS from the [facility] with concerns for hypertension. She has a history thereof. She was provided with a dose of clonidine prior to arrival. She appears in no acute distress on exam. The log of her most recent blood pressures was reviewed by me
[2017-07-10] MEDS ORDERED: Aspirin 81 MG TAB.CHEW PO ONE (16:53)
[2017-07-10] MEDS ORDERED: Nitroglycerin 0.4 MG TAB.SUBL SL ONE (16:53)
--- NOTE | 2017-07-10 16:56 | Emergency Department Note ---
Disposition Clinical Impression: Elevated blood pressure reading Chest pain Qualifiers: Chest pain type: unspecified Qualified Code(s): R07.9 - Chest pain, unspecified Disposition: Admitted As Inpatient Condition: Fair Referrals: Abbi Lemon DO [Primary Care Provider] - Forms: ED Satisfaction Letter, Work/School Release Chest Pain HPI - General Chief Complaint: ED General Medical Stated Complaint: High Blood Pressure Time Seen by Provider: 07/10/17 16:46 Source: patient Mode of arrival: EMS Limitations: no limitations Vital Signs Reviewed: Yes Nursing Notes Reviewed: Yes - History of Present Illness HPI Narrative: 81-year-old female with history of stents as well as high blood pressure persists for evaluation of chest pain as well as elevated blood pressure. Patient states that she was ambulatory and walking to the kitchen. Patient was noted to have high blood pressure upon return. Patient blood pressure was 190 systolic. Patient was given half a clonidine and blood pressure improved. Patient's states that she has had chest tightness without radiation. No diaphoresis or vomiting. Patient states she does feel warm and feels like she has a hard time breathing. Patient denies any other symptoms. States he has had a heart attack in the remote past with stents placed. - Related Data Home Medications Medication Instructions Recorded Confirmed Atorvastatin Calcium [Lipitor] 20 mg PO HS 06/29/15 07/10/17 Clopidogrel [Plavix] 75 mg PO DAILY 06/29/15 07/10/17 Isosorbide DInitrate [Isosorbide 10 mg PO TID 06/29/15 07/10/17 Dinitrate] Nitroglycerin [Nitrostat] 0.4 mg SL Q5M PRN 06/29/15 07/10/17 amLODIPine [Norvasc] 5 mg PO DAILY 06/29/15 07/10/17 cloNIDine HCl [Clonidine HCl] 0.2 mg PO Q8H PRN 06/29/15 07/10/17 Cholecalciferol (D-3) [Vitamin D] 2,000 unit PO DAILY 01/22/16 07/10/17 Acetaminophen [Tylenol] 325 mg PO PER PKG DI PRN 06/24/17 07/10/17 Aspirin Enteric Coated [Aspirin EC] 325 mg PO DAILY 06/24/17 07/10/17 Ibuprofen [Motrin] 200 mg PO PER PKG DI PRN 06/24/17 07/10/17 Loperamide HCl [Imodium A-D] 2 mg PO PER PKG DI PRN 06/24/17 07/10/17 Loratadine [Claritin] 10 mg PO DAILY 06/24/17 07/10/17 MOM Conc [MILK OF MAGNESIA conc] 30 ml PO PER PKG DI PRN 06/24/17 07/10/17 Mag Hydrox/Al Hydrox/Simeth 15 ml PO PER PKG DI PRN 06/24/17 07/10/17 [Antacid Suspension] [place]-3/Dha/Epa/Fish Oil [Fish Oil 1,000 mg PO DAILY 06/24/17 07/10/17 1,000 mg Softgel] Losartan Potassium [Cozaar] 100 mg PO DAILY 07/10/17 07/10/17 Metoprolol Succinate [Toprol Xl] 25 mg PO DAILY 07/10/17 07/10/17 Allergies Allergy/AdvReac Type Severity Reaction Status Date / Time diphenhydramine Allergy Hives Verified 06/24/17 17:06 [From Benadryl Allergy] penicillin V Allergy Rash Verified 06/24/17 17:06 Albumin Colloid, Human AdvReac See Verified 06/24/17 19:24 Comments albuterol AdvReac See Verified 06/24/17 19:24 Comments Corticosteroids AdvReac See Verified 06/24/17 19:24 (Glucocorticoids) Comments latex AdvReac See Verified 06/24/17 19:24 Comments lidocaine AdvReac See Verified 06/24/17 19:24 Comments metoclopramide [From Reglan] AdvReac Numbness Verified 06/24/17 17:06 ivp Allergy See Uncoded 06/24/17 17:06 Comments All systems ED: reviewed and negative except as stated. Constitutional: Denies: fever Cardiovascular: Reports: chest pain Respiratory: Reports: dyspnea. Denies: wheezes Gastrointestinal: Denies: abdominal pain, nausea, vomiting Musculoskeletal: Denies: back pain Chest Pain PMH - Past Medical History Medical history: Reports: aortic aneurysm, COPD, hepatitis, hyperlipidemia, hypertension, myocardial infarction Surgical history: Reports: other Psychiatric history: Reports: bipolar - Social History Smoking Status: Former smoker Alcohol use: Reports: none Drug use: Reports: none Physical Exam - General Limitations: no limitations General appearance: alert, in no apparent distress - Head Head exam: atraumatic, normocephalic, normal inspection - Eye Eye exam: Present: normal appearance, PERRL, EOMI - ENT ENT exam: normal exam, normal oropharynx - Neck Neck exam: Present: normal inspection, trachea midline - Chest Chest inspection: Present: normal inspection, symmetric chest wall rise - Respiratory Respiratory exam: Present: normal lung sounds bilaterally - Cardiovascular Cardiovascular exam: Present: normal rhythm. Absent: systolic murmur - Abdominal Exam Abdominal exam: Present: soft, Non-Tender. Absent: guarding, rebound - Extremities Exam Extremities exam: Present: normal inspection, pedal edema (Trace bilateral) - Back Exam Back exam: Present: normal inspection - Neurological Exam Neurological exam: Present: alert - Skin Skin exam: Present: warm, dry, intact, normal color Course Course Narrative: Patient seen and examined. Patient's blood pressure, normal upon EMS arrival. Patient was noted have "chest tightness". Patient will need basic labs cardiopulmonary evaluation including a chest x-ray. Disposition pending. Patient's records revealed shows that she has a recent hospitalization in June of this year where there was a CT imaging of the chest abdomen pelvis. Patient does have known endovascular repair of abdominal aortic aneurysm as well as a descending aortic aneurysm approximately 4 cm. Patient echo obtained at that time as well which showed EF of 60-65% - Reevaluation(s) Reevaluation #1: Patient pain relieved after 2 nitro. Time: 18:59 Vital Signs Temperature 97.0 F L 07/10/17 16:46 Pulse Rate 72 07/10/17 16:46 Respiratory Rate 20 07/10/17 16:46 Blood Pressure 177/110 07/10/17 16:46 O2 Sat by Pulse Oximetry 100 07/10/17 16:46 Temperature 97.0 F L 07/10/17 16:46 Pulse Rate 59 07/10/17 19:54 Respiratory Rate 22 07/10/17 19:54 Blood Pressure 123/76 07/10/17 19:54 O2 Sat by Pulse Oximetry 99 07/10/17 19:54 Oxygen Delivery Oxygen Delivery Room Air Chest Pain - MDM Narrative Medical decision making narrative: 81-year-old female presents for evaluation of high blood pressure and chest pain. Patient was treated with clonidine prehospital as well as nitroglycerin upon arrival. Agents history was concerning for ACS as she has been having chest tightness. Patient's chest pain relieved after 2 nitroglycerin tablets. Given the patient's recent admission she had an aneurysm of thoracic aorta. Appears to be stable with repeat imaging. Patient's blood pressure also improved. Patient troponin is negative however would likely need training troponins. Patient also need continued evaluation with a stress test. Family at bedside agree with plan of care. Patient will be admitted for high blood pressure as well as unstable angina. Patient is not have any EKG changes. Heparin was not ordered in the emergency department given the patient's negative troponin and no EKG changes. - Lab Data Lab results reviewed: Yes I reviewed the patient's lab results. Result diagrams: 07/10/17 17:13 07/10/17 17:13 Lab Results 07/10/17 07/10/17 07/10/17 Range/Units 17:13 17:13 17:13 WBC 3.6 L (4.3-11.1) K/mcL RBC 4.27 (3.82-4.97) M/mcL Hgb 13.4 (11.5-15.4) g/dL Hct 39.1 (35.3-44.9) % MCV 91.6 (83.0-100.0) fL MCH 31.4 (28.0-33.3) pg MCHC 34.3 (31.6-35.5) g/dL RDW 12.8 (11.5-14.5) % Plt Count 180 (140-400) K/mcL MPV 9.6 (9.4-12.4) fL Immature Gran % 0.3 (0-4) % Seg Neutrophils % 54.5 % Lymphocytes % 29.2 % Monocytes % 11.0 % Eosinophils % 4.4 % Basophils % 0.6 % Neutrophils # 2.0 (1.6-8.9) K/mcL Lymphocytes # 1.1 (0.6-4.6) K/mcL Monocytes # 0.4 (0.0-1.3) K/mcL Eosinophils # 0.2 (0.0-0.6) K/mcL Basophils # 0.0 (0.0-0.2) K/mcL Sodium 122 L (136-145) mEq/L Potassium 4.4 (3.5-5.1) mEq/L Chloride 92 L (98-107) mEq/L Carbon Dioxide 26 (23-29) mEq/L BUN 21 (8-23) mg/dL Creatinine 0.77 (0.60-1.20) mg/dL Est GFR ( Amer) > 60 (> 60) Est GFR (Non-Af Amer) > 60 (> 60) BUN/Creatinine Ratio 27 H (6-26) Glucose 103 (70-105) mg/dL Calculated Osmolality 257 L (280-300) Calcium 9.3 (8.6-10.3) mg/dL Troponin I (< 0.04) ng/mL B-Natriuretic Peptide 137 H (Less than 100) pg/mL 07/10/17 Range/Units 17:13 WBC (4.3-11.1) K/mcL RBC (3.82-4.97) M/mcL Hgb (11.5-15.4) g/dL Hct (35.3-44.9) % MCV (83.0-100.0) fL MCH (28.0-33.3) pg MCHC (31.6-35.5) g/dL RDW (11.5-14.5) % Plt Count (140-400) K/mcL MPV (9.4-12.4) fL Immature Gran % (0-4) % Seg Neutrophils % % Lymphocytes % % Monocytes % % Eosinophils % % Basophils % % Neutrophils # (1.6-8.9) K/mcL Lymphocytes # (0.6-4.6) K/mcL Monocytes # (0.0-1.3) K/mcL Eosinophils # (0.0-0.6) K/mcL Basophils # (0.0-0.2) K/mcL Sodium (136-145) mEq/L Potassium (3.5-5.1) mEq/L Chloride (98-107) mEq/L Carbon Dioxide (23-29) mEq/L BUN (8-23) mg/dL Creatinine (0.60-1.20) mg/dL Est GFR ( Amer) (> 60) Est GFR (Non-Af Amer) (> 60) BUN/Creatinine Ratio (6-26) Glucose (70-105) mg/dL Calculated Osmolality (280-300) Calcium (8.6-10.3) mg/dL Troponin I < 0.03 (< 0.04) ng/mL B-Natriuretic Peptide (Less than 100) pg/mL - Radiology Data Radiology results reviewed: Yes I reviewed the patient's radiology results. Chest X-Ray 07/10/17 16:53 IMPRESSION: No acute process. Stable exam. D/ / Shailesh Del Cid MD / Shailesh Del Cid MD Interpreting Provider: Shailesh Del Cid MD Chest CT 07/10/17 17:37 IMPRESSION: 1. No acute abnormality in the chest. 2. Stable 4.3 cm distal descending thoracic aortic aneurysm. 3. Severe coronary artery disease. D/ / Yamil Rushing MD / Yamil Rushing MD Interpreting Provider: Yamil Rushing MD - EKG Data EKG attestation: Yes I reviewed and interpreted this EKG. EKG shows normal: sinus rhythm Rate: normal Rhythm: NSR [place]/QRS: left axis deviation, RBBB Voltage: c/w LVH Q waves: aVR T wave inversions noted in: v1, v2, v3, v4, v5, v6 Interpretation: no acute changes, unchanged when compared to prior tracing (date ), nonspecific ST-T wave changes S.B.A.RProsper - S.B.A.RProsper Situation: Demographics Background: Presenting Complaint Assessment: Vital Signs, Course and respsone to treatment Recommendation: Barrier(s) to disposition, Recommendation based on pending studies, treatments, or consults S.B.A.R. Report Given to: Dr. Lu SProsperBProsperAYazmin Repor Time: 19:37
[2017-07-10 17:35] LABS: Basophils % 0.6 %; Eosinophils # 0.2 K/mcL (0.0-0.6); Eosinophils % 4.4 %; Hematocrit 39.1 % (35.3-44.9); Hemoglobin 13.4 g/dL (11.5-15.4); Immature Granulocytes % 0.3 % (0-4); Lymphocytes # 1.1 K/mcL (0.6-4.6); Lymphocytes % 29.2 %; Mean Corpuscular HGB Conc 34.3 g/dL (31.6-35.5); Mean Corpuscular Hemoglobin 31.4 pg (28.0-33.3); Mean Corpuscular Volume 91.6 fL (83.0-100.0); Mean Platelet Volume 9.6 fL (9.4-12.4); Monocytes # 0.4 K/mcL (0.0-1.3); Platelet Count 180 K/mcL (140-400); Red Blood Count 4.27 M/mcL (3.82-4.97); Red Cell Distribution Width 12.8 % (11.5-14.5); Segmented Neutrophils % 54.5 %
[2017-07-10 17:49] LABS: BUN/Creatinine Ratio 27 (6-26); Blood Urea Nitrogen 21 mg/dL (8-23); Calcium 9.3 mg/dL (8.6-10.3); Carbon Dioxide 26 mEq/L (23-29); Chloride 92 mEq/L (98-107); Glucose 103 mg/dL (70-105); Osmolality,Calculated 257 (280-300); Potassium 4.4 mEq/L (3.5-5.1); Sodium 122 mEq/L (136-145); eGFR For African Americans > 60 (> 60); eGFR For Non-African Americans > 60 (> 60)
[2017-07-10] MEDS ORDERED: cloNIDine HCl 0.1 MG TABLET PO PRN (20:14)
[2017-07-10] MEDS ORDERED: Acetaminophen 325 MG TABLET PO PRN ×2 (20:14→20:52)
[2017-07-10] MEDS ORDERED: Nitroglycerin 0.4 MG TAB.SUBL SL PRN (20:14)
[2017-07-10] MEDS ORDERED: Mag Hydrox/Al Hydrox/Simeth 30 ML UDC PO PRN (20:14)
[2017-07-10] MEDS ORDERED: Naloxone 0.4 MG/ML INJ IVP PRN (20:32)
--- NOTE | 2017-07-10 20:42 | Internal Med History&Physical ---
<Peter Knapp - Last Filed: 07/10/17 20:39> Date of Encounter: 07/10/17 Time of Encounter: 20:39 Assessment and Plan (1) Hypertensive urgency Current visit: Yes Status: Acute Presents today with HTN urgency. She was recently here for hypotension secondary to orthostasis and during that time she had her BP medication adjusted. She reports that since that stay she has been experiencing HTN with SBP greater than 170's requiring PRN clonadine. During these episodes of HTN she also experiences chest pressure/discomfort. -hydralazine for SBP greater than 160 -Resume clonadine PRN -Continue antihypertensives (2) Chest pain Current visit: Yes Status: Acute chest pressure/discomfort secondary to HTN urgency. No CP with BP improvement. No ischemia noted on EKG. Initial troponin 0.03. -Continuous tele -trend troponin -NPO after midnight -Consider stress in am if HTN improves and the patient is stable; the family reports that the last time she was here they felt the workup was incomplete d/t her condition and they mention that a stress test was supposed to be completed at a later date. I will hold off on order a stress for now Qualifiers: Chest pain type: unspecified Qualified Code(s): R07.9 - Chest pain, unspecified (3) Sinus bradycardia, persistent Current visit: Yes Status: Chronic Occasional sinus bradycardia. stable, asymptomatic. (4) AAA (abdominal aortic aneurysm) without rupture Current visit: Yes Status: Chronic stable per CT (5) CAD (coronary artery disease) Current visit: Yes Status: Chronic Continue ASA, Statin, plavix and antihypertensives Qualifiers: Coronary Disease-Associated Artery/Lesion type: [place] artery [place] vs. transplanted heart: [place] heart Associated angina: angina presence unspecified Qualified Code(s): I25.10 - Atherosclerotic heart disease of [place] coronary artery without angina pectoris (6) DVT prophylaxis Current visit: Yes Status: Acute Heparin 5000 units SC BID Internal Medicine - H&P: HPI Chief complaint: Hypertension, chest pressure Admitted From: Home Plans for Post Hospital Care: Home History of present illness: Ms. Gonzalez is a 81 year old female with a PMH of COPD, stable AAA, hepatitis, HLD, HTN and prior ME. She presents to [facility] today for hypertensive urgency and chest pressure. The patient states that she has been having elevated blood pressure with activity since her last admission. Her last admission she was found to be hypotensive caused by orthostasis. During that stay her blood pressure medications were adjusted to avoid hypotension and since she is having hypertensive episodes. She reports that when her blood pressure becomes elevated she experiences chest pressure and tightness without radiation, shortness of breath, diaphoresis, nausea or vomiting. She denies any fevers, chills, current chest pain since her blood pressure is improved, abdominal pain , nausea, vomiting, diarrhea, shortness of breath. Initial troponin negative, chest x-ray negative. She is being admitted for further evaluation and monitoring Past Med Surg Social Fam HX - Past Medical History Medical history: aortic aneurysm, COPD, hepatitis, hyperlipidemia, hypertension , myocardial infarction Psychiatric history: bipolar - Past Surgical History Surgical History: other - Social History Smoking Status: Former smoker Smokeless Tobacco Status: No Alcohol use: none Drug use: none - Family History Mother Living Status: Father Living Status: Internal Medicine - H&P: Meds Atorvastatin Calcium [Lipitor] 20 mg PO HS 06/29/15 [History] Clopidogrel [Plavix] 75 mg PO DAILY 06/29/15 [History] Isosorbide DInitrate [Isosorbide Dinitrate] 10 mg PO TID 06/29/15 [History] Nitroglycerin [Nitrostat] 0.4 mg SL Q5M PRN 06/29/15 [History] amLODIPine [Norvasc] 5 mg PO DAILY 06/29/15 [History] cloNIDine HCl [Clonidine HCl] 0.2 mg PO Q8H PRN 06/29/15 [History] Cholecalciferol (D-3) [Vitamin D] 2,000 unit PO DAILY 01/22/16 [History] Acetaminophen [Tylenol] 325 mg PO PER PKG DI PRN 06/24/17 [History] Aspirin Enteric Coated [Aspirin EC] 325 mg PO DAILY 06/24/17 [History] Ibuprofen [Motrin] 200 mg PO PER PKG DI PRN 06/24/17 [History] Loperamide HCl [Imodium A-D] 2 mg PO PER PKG DI PRN 06/24/17 [History] Loratadine [Claritin] 10 mg PO DAILY 06/24/17 [History] MOM Conc [MILK OF MAGNESIA conc] 30 ml PO PER PKG DI PRN 06/24/17 [History] Mag Hydrox/Al Hydrox/Simeth [Antacid Suspension] 15 ml PO PER PKG DI PRN [History] [place]-3/Dha/Epa/Fish Oil [Fish Oil 1,000 mg Softgel] 1,000 mg PO DAILY 06/24/17 [History] Losartan Potassium [Cozaar] 100 mg PO DAILY 07/10/17 [History] Metoprolol Succinate [Toprol Xl] 25 mg PO DAILY 07/10/17 [History] 3 Allergy/AdvReac Type Severity Reaction Status Date / Time diphenhydramine Allergy Hives Verified 06/24/17 17:06 [From Benadryl Allergy] penicillin V Allergy Rash Verified 06/24/17 17:06 Albumin Colloid, Human AdvReac See Verified 06/24/17 19:24 Comments albuterol AdvReac See Verified 06/24/17 19:24 Comments Corticosteroids AdvReac See Verified 06/24/17 19:24 (Glucocorticoids) Comments latex AdvReac See Verified 06/24/17 19:24 Comments lidocaine AdvReac See Verified 06/24/17 19:24 Comments metoclopramide [From Reglan] AdvReac Numbness Verified 06/24/17 17:06 ivp Allergy See Uncoded 06/24/17 17:06 Comments All Systems PM: A 10-system review of systems was performed and is negative for pertinent findings except as documented above in the HPI. - Constitutional Constitutional: as per HPI - Cardiovascular Cardiovascular ROS IM: as per HPI - Respiratory Respiratory: as per HPI - Gastrointestinal Gastrointestinal: as per HPI - Genitourinary Genitourinary: as per HPI - Musculoskeletal Musculoskeletal ROS IM: no numbness, no tingling - Integumentary Integumentary IM: no rash, no unusual bruising - Neurological Neurological ROS: no confusion, no convulsions, no focal weakness, no numbness, no tingling, no tremor(s) - Constitutional Vitals: Temp Pulse Resp BP Pulse Ox 97.0 F L 60 16 151/87 99 07/10/17 16:46 07/10/17 20:26 07/10/17 20:26 07/10/17 20:26 07/10/17 20:26 General appearance: Present: cooperative, A&O X 3, no acute distress, answers questions appropriately - Head Head exam: Present: atraumatic, normocephalic - Eye Eye exam: Present: PERRL, conjuntiva pink, sclera anicteric Pupils: Present: PERRL - Neck Neck exam general surgery: Present: supple, trachea midline. Absent: lymphadenopathy - Respiratory Respiratory exam: Present: CTAB. Absent: accessory muscle use, rales, rhonchi, wheezes - Cardiovascular Cardiovascular exam: Present: bradycardia, +S1, +S2. Absent: diastolic murmur, gallop, rubs, systolic murmur - GI/Abdominal GI/Abdominal exam: Present: normal bowel sounds, soft, no peritoneal signs. Absent: distended, tenderness - Extremities Exam Extremities exam: Present: warm, radial pulses palpable and symmetrical. Absent : calf tenderness, cyanotic, pedal edema - Neurological Exam Neurological exam: Present: CN II-XII intact, oriented X3, no focal deficits. Absent: pronater drift, facial droop, speech deficit - Skin Skin exam: Present: dry, intact Internal Med - H&P Results - Labs CBC & Chem 7: 07/10/17 17:13 07/10/17 17:13 - EKG Data -: EKG Interpreted by Myself EKG shows normal: sinus rhythm Rate: normal - Impressions Impressions Chest X-Ray 07/10/17 16:53 IMPRESSION: No acute process. Stable exam. D/ / Shailesh Del Cid MD / Shailesh Del Cid MD Interpreting Provider: Shailesh Del Cid MD Chest CT 07/10/17 17:37 IMPRESSION: 1. No acute abnormality in the chest. 2. Stable 4.3 cm distal descending thoracic aortic aneurysm. 3. Severe coronary artery disease. D/ / Yamil Rushing MD / Yamil Rushing MD Interpreting Provider: Yamil Rushing MD <AlyRiccobrooke Arriola - Last Filed: 07/10/17 21:57> Date of Encounter: 07/10/17 Internal Medicine - H&P: HPI History of present illness: Ms. Gonzalez is a 81 year old female All Systems PM: A 10-system review of systems was performed and is negative for pertinent findings except as documented above in the HPI. - Constitutional Vitals: Temp Pulse Resp BP Pulse Ox 98.1 F 56 16 137/82 99 07/10/17 21:41 07/10/17 21:41 07/10/17 21:41 07/10/17 21:41 07/10/17 21:41 Internal Med - H&P Results - Labs CBC & Chem 7: 07/10/17 17:13 07/10/17 17:13 - Attending Attestation I have personally performed a face to face evaluation on this patient. I have reviewed and agree with the care plan. History and Exam by me shows: 81 yo patient with HTN, ME many years ago and s/p 2 stents > 10 years ago at [place], [place] who presents with uncontrolled HTN and Chest pain Was found to have high BP 198/130 at [facility] around 230 pm. Developed Chest pain at 4 pm. Review suggest on and off chest pain syndrome in the last couple of weeks. She visits with Dr Owusu. Reviewed noted AAA that was surgically repaired by Dr Leon 2 years ago approx. At baseline, she as LLE swelling that is greater than RLE. EKG personally reviewed with rate 71, NSR, RBBB and T inversion over anterior led that is unchanged from prior. General - AAO x 3 Psych - Appropriate affect/speech. No agitation Eyes - MARIIA. Eye lids intact. No scleral icterus Neuro - No gross peripheral or central neuro deficits with intact CN 2-12 exam Heart - Sinus. RRR. S1 and S2 present. No added HS/murmurs appreciated. No elevated JVD appreciated. Lung - Adequate air entry b/l, No crackles/wheezes appreciated GI - Soft, non-tender. No hepatosplenomegaly/ascites. BS+ - No CVA/suprapubic tenderness or palpable bladder distension Skin - Intact. No rash/petechiae/ecchymosis. LLE swelling > RLE A/O HTN, poorly controlled - prn IV hydralazine , try to avoid gtt therapy in the acute setting - adjust PO med accordingly in the a.m CHest pain - family reported that "she didn't get the full CP eval during the last admission and therefore will need to be observed" - control BP and if stable, consider stress testing - trend top
[2017-07-10] MEDS ORDERED: MOM Conc 10 ML UD.LIQ PO PRN (21:00)
[2017-07-11 04:12] LABS: Mean Corpuscular HGB Conc 35.1 g/dL (31.6-35.5); Mean Corpuscular Hemoglobin 31.4 pg (28.0-33.3); Mean Corpuscular Volume 89.4 fL (83.0-100.0); Mean Platelet Volume 9.5 fL (9.4-12.4); Platelet Count 171 K/mcL (140-400); Red Blood Count 4.14 M/mcL (3.82-4.97); Red Cell Distribution Width 12.9 % (11.5-14.5)
[2017-07-11 04:50] LABS: BUN/Creatinine Ratio 31 (6-26); Blood Urea Nitrogen 19 mg/dL (8-23); Calcium 9.1 mg/dL (8.6-10.3); Carbon Dioxide 22 mEq/L (23-29); Chloride 100 mEq/L (98-107); Glucose 96 mg/dL (70-105); Osmolality,Calculated 266 (280-300); Potassium 4.1 mEq/L (3.5-5.1); Sodium 127 mEq/L (136-145); eGFR For African Americans > 60 (> 60); eGFR For Non-African Americans > 60 (> 60)
[2017-07-11] MEDS ORDERED: *HR* Heparin 5,000 UNIT/ML VIAL SQ SCH (06:00)
--- NOTE | 2017-07-11 06:39 | Electrocardiograph Report ---
[address] [place], [place] [address] Test Date: 2017-07-10 Pat Name: Michelle Gonzalez Department: 102 Room: 3B43 Gender: F [employer] Bever[employer] Attendant: : 1935 Requested By: Jos Soni Order Number: [id number] Reading MD: Kendall Mendoza MD Measurements Intervals [place] Rate: 71 P: -14 NE: 174 QRS: -21 QRSD: 138 T: 69 QT: 399 QTc: 422 Interpretive Statements SINUS RHYTHM BORDERLINE LEFT AXIS DEVIATION RIGHT BUNDLE BRANCH BLOCK LEFT VENTRICULAR HYPERTROPHY AND ST-T CHANGE BASELINE ARTIFACT Electronically Signed On 07-11-2017 6:37:38 EST by Kendall Mendoza MD
[2017-07-11] MEDS ORDERED: amLODIPine 5 MG TABLET PO SCH (09:00)
[2017-07-11] MEDS ORDERED: Metoprolol XL (24 HR) Succ 25 MG TAB.ER.24H PO SCH (09:00)
[2017-07-11] MEDS ORDERED: Regadenoson 0.4 MG/5 ML SYRINGE IVP ONE (09:00)
[2017-07-11] MEDS ORDERED: Aspirin Enteric Coated 325 MG Tablet PO SCH (09:00)
[2017-07-11] MEDS ORDERED: Cholecalciferol (D-3) 1,000 UNIT TABLET PO SCH (09:00)
[2017-07-11] MEDS ORDERED: Loratadine 10 MG TABLET PO SCH (09:00)
[2017-07-11 11:08] VITALS: BP 145/80
--- NOTE | 2017-07-11 14:46 | Discharge Summary ---
Date of Encounter: 07/11/17 Time of Encounter: 14:43 - Discharge Diagnosis (1) Hypertensive urgency Priority: Primary Status: Acute (2) CAD (coronary artery disease) Priority: Secondary Status: Chronic Qualifiers: Coronary Disease-Associated Artery/Lesion type: [place] artery [place] vs. transplanted heart: [place] heart Associated angina: angina presence unspecified Qualified Code(s): I25.10 - Atherosclerotic heart disease of [place] coronary artery without angina pectoris (3) Chest pain Priority: Secondary Status: Resolved Qualifiers: Chest pain type: unspecified Qualified Code(s): R07.9 - Chest pain, unspecified (4) DVT prophylaxis Priority: Secondary Status: Acute (5) Sinus bradycardia, persistent Priority: Secondary Status: Chronic - Discharge Medications Prescriptions: Metoprolol XL (24 HR) Succ [Toprol XL] 12.5 mg PO DAILY #30 tab.er.24h Home Medications: Atorvastatin Calcium [Lipitor] 20 mg PO HS 06/29/15 [History] Clopidogrel [Plavix] 75 mg PO DAILY 06/29/15 [History] Isosorbide DInitrate [Isosorbide Dinitrate] 10 mg PO TID 06/29/15 [History] Nitroglycerin [Nitrostat] 0.4 mg SL Q5M PRN 06/29/15 [History] amLODIPine [Norvasc] 5 mg PO DAILY 06/29/15 [History] cloNIDine HCl [Clonidine HCl] 0.2 mg PO Q8H PRN 06/29/15 [History] Cholecalciferol (D-3) [Vitamin D] 2,000 unit PO DAILY 01/22/16 [History] Acetaminophen [Tylenol] 325 mg PO PER PKG DI PRN 06/24/17 [History] Aspirin Enteric Coated [Aspirin EC] 325 mg PO DAILY 06/24/17 [History] Loperamide HCl [Imodium A-D] 2 mg PO PER PKG DI PRN 06/24/17 [History] Loratadine [Claritin] 10 mg PO DAILY 06/24/17 [History] MOM Conc [MILK OF MAGNESIA conc] 30 ml PO PER PKG DI PRN 06/24/17 [History] Mag Hydrox/Al Hydrox/Simeth [Antacid Suspension] 15 ml PO PER PKG DI PRN [History] [place]-3/Dha/Epa/Fish Oil [Fish Oil 1,000 mg Softgel] 1,000 mg PO DAILY 06/24/17 [History] Losartan Potassium [Cozaar] 100 mg PO DAILY 07/10/17 [History] Metoprolol XL (24 HR) Succ [Toprol XL] 12.5 mg PO DAILY #30 tab.er.24h 07/11/17 [Rx] Allergies/Adverse Reactions: 3 Allergy/AdvReac Type Severity Reaction Status Date / Time diphenhydramine Allergy Hives Verified 06/24/17 17:06 [From Benadryl Allergy] penicillin V Allergy Rash Verified 06/24/17 17:06 Albumin Colloid, Human AdvReac See Verified 06/24/17 19:24 Comments albuterol AdvReac See Verified 06/24/17 19:24 Comments Corticosteroids AdvReac See Verified 06/24/17 19:24 (Glucocorticoids) Comments latex AdvReac See Verified 06/24/17 19:24 Comments lidocaine AdvReac See Verified 06/24/17 19:24 Comments metoclopramide [From Reglan] AdvReac Numbness Verified 06/24/17 17:06 ivp Allergy See Uncoded 06/24/17 17:06 Comments Procedures/tests Complete & Pending: Procedures Performed prior 72 hours Category Date Time Status NM jade perf SPECT multi [NM] Routine Exams 07/11/17 07:46 Taken SP pharm nuclear stress Routine Y 07/11/17 07:46 Completed Date of admission: 07/10/17 20:24 Primary care physician: Abbi Lemon DO Consults: 07/11/17 01:02 Consult to Security Sales Manager [CONS] Routine Reason for SW Consult: Daughter,Kristel Adams(POA), would like to discuss updating DNR status. Brought in a copy but it was witnessed by who has been for 3 years Discharging clinician: Joo Lomax Anticipated date of discharge: 07/11/17 - Patient Status Disposition: Home, Self-Care Condition: Good Functional capacity at discharge: uses cane/walker Overall status at discharge: patient is progressing back to baseline - Discharge Instructions Instructions: Chest Pain (DC), Chronic Hypertension (DC) Follow Up With: Abbi Lemon DO [Primary Care Provider] - (in 1-2 weeks) - Diet and Activity Activity: increase activity as tolerated Diet: low fat, low cholesterol, low salt diet Hospital course: Ms. Gonzalez is a 81 year old female patient with history of essential hypertension, coronary artery disease, COPD, who was sent to the ER for hypertensive urgency with severely elevated blood pressure. She was also having chest pain at that time. She was evaluated in ER and was given intravenous medications with improvement in her blood pressure. She had recently been hospitalized here for episodes of bradycardia and at that time her metoprolol was completely stopped. Most likely patient was having rebound hypertension due to stoppage of beta ernesto as she had been on this medication for several years now. She was therefore placed on oral beta ernesto with improvement in her blood pressure. Her blood pressure has been well controlled since her hospitalization here. Her troponins were negative. She underwent cardiac stress test today. This was negative for ischemia. She is no longer having chest pain. I discussed her case with her primary care provider and we have decided to place her back on metoprolol but at a lower dosage. She is also on Cozaar 100 mg daily and Norvasc 5 mg daily. If these medications do not control her blood pressure or she develops significant hypertension with systolic blood pressure greater than 160/170 mmHg, she also has clonidine available to her to be used as needed. Given her age, I recommend a systolic blood pressure goal of less than 150 mm Hg. She will follow up with her primary care provider for further management. She is to be discharged today back to assisted living facility. - Time Spent with Patient Total time spent providing and/or coordinating discharge services: Less than 30 minutes (25 min) - Constitutional Vitals: Temp Pulse Resp BP Pulse Ox 98.2 F 67 16 145/80 97 07/11/17 11:06 07/11/17 11:06 07/11/17 11:06 07/11/17 11:06 07/11/17 11:06 General appearance: Present: cooperative, A&O X 3, no acute distress, answers questions appropriately - Neck Neck exam general surgery: Present: supple, trachea midline. Absent: lymphadenopathy - Respiratory Respiratory exam: Present: CTAB. Absent: accessory muscle use, rales, rhonchi, wheezes - Cardiovascular Cardiovascular exam: Present: RRR, +S1, +S2. Absent: diastolic murmur, gallop, rubs, systolic murmur - GI/Abdominal GI/Abdominal exam: Present: normal bowel sounds, soft, no peritoneal signs. Absent: distended, tenderness - Neurological Exam Neurological exam: Present: CN II-XII intact, oriented X3, no focal deficits. Absent: facial droop, speech deficit
== END 2017-07-11 16:55 | disposition home or self-care (01) ==
LOC: 3BNU 16:44 → EMEROO 16:44 → SUATTDRO 20:24 → 3BNU 20:47
PROVIDERS: ADMIT Nurse Practitioner; ATTEND Internal Medicine

== ENCOUNTER 2019-10-06 11:53 | Inpatient (IN) ==
[2019-10-06 12:51] LABS: Basophils % 0.3 %; Eosinophils % 0.3 %; Hemoglobin 11.4 g/dL (11.5-15.4); Immature Granulocytes % 0.6 % (0-4); Lymphocytes # 1.8 K/mcL (0.6-4.6); Lymphocytes % 15.6 %; Mean Corpuscular HGB Conc 30.8 g/dL (31.6-35.5); Mean Corpuscular Hemoglobin 31.3 pg (28.0-33.3); Mean Corpuscular Volume 101.6 fL (83.0-100.0); Mean Platelet Volume 9.8 fL (9.4-12.4); Monocytes # 0.9 K/mcL (0.0-1.3); Monocytes % 7.5 %; Neutrophils # 8.9 K/mcL (1.6-8.9); Platelet Count 259 K/mcL (140-400); Red Blood Count 3.64 M/mcL (3.82-4.97); Red Cell Distribution Width 17.4 % (11.5-14.5); Segmented Neutrophils % 75.7 %; White Blood Count 11.8 K/mcL (4.3-11.1)
[2019-10-06 13:25] LABS: BUN/Creatinine Ratio 41 (6-26); Blood Urea Nitrogen 33 mg/dL (8-23); Calcium 9.7 mg/dL (8.6-10.3); Carbon Dioxide 26 mEq/L (23-29); Chloride 100 mEq/L (98-107); Glucose 153 mg/dL (70-105); Osmolality,Calculated 294 (280-300); Potassium 4.5 mEq/L (3.5-5.1); Sodium 137 mEq/L (136-145); Troponin I 0.03 ng/mL (< 0.04); eGFR For African Americans > 60 (> 60); eGFR For Non-African Americans > 60 (> 60)
[2019-10-06] MEDS ORDERED: Aztreonam 2,000 MG in 0.9 % Sodium Chloride Mini Bag 100 ML IVPB ONE (14:46)
[2019-10-06] MEDS ORDERED: Vancomycin 1,250 MG/262.5 ML IV.SOLN IVPB ONE (14:54)
[2019-10-06] MEDS ORDERED: Cefepime HCl 2,000 MG in Water for inj. (sterile) 20 ML IVP STA (15:02)
[2019-10-06] MEDS ORDERED: Azithromycin 500 MG in 0.9 % Sodium Chloride 250 ML IVPB ONE (15:03)
[2019-10-06] MEDS ORDERED: Ondansetron 4 MG/2 ML VIAL IVP PRN (16:02)
[2019-10-06] MEDS ORDERED: Naloxone 0.4 MG/ML INJ IVP PRN (16:02)
[2019-10-06 16:17] LABS: ABG Base Excess 6 mEq/L (-2 to 3); ABG HCO3 28 mEq/L (21-27); ABG Oxygen Saturation 99 % (95-98); ABG PCO2 33 mmHg (35-45); ABG PH 7.54 pH Units (7.32-7.45); ABG PO2 139 mmHg (85-104); ABG TCO2 29 mEq/L (20-26)
[2019-10-06] MEDS ORDERED: Acetaminophen 325 MG TABLET PO PRN (16:39)
[2019-10-06] MEDS: Cyanocobalamin (B-12) 1,000 MCG TABLET PO SCH (20:35)
[2019-10-06] MEDS: Gabapentin 300 MG CAPSULE PO SCH (20:36)
[2019-10-06] MEDS: amLODIPine 5 MG TABLET PO SCH (20:36)
[2019-10-06] MEDS: Furosemide 20 MG/2 ML VIAL IVP SCH (20:47)
[2019-10-07] MEDS: Cefepime HCl 1,000 MG in 0.9 % Sodium Chloride Mini Bag 100 ML IVPB SCH ×3 (00:33→17:35)
[2019-10-07] MEDS ORDERED: Levalbuterol Neb 1.25 MG/3 ML IH SCH (02:00)
[2019-10-07 02:12] LABS: Basophils % 0.3 %; Eosinophils # 0.1 K/mcL (0.0-0.6); Eosinophils % 0.9 %; Hematocrit 37.2 % (35.3-44.9); Hemoglobin 11.2 g/dL (11.5-15.4); Immature Granulocytes % 0.5 % (0-4); Lymphocytes # 2.2 K/mcL (0.6-4.6); Lymphocytes % 16.3 %; Mean Corpuscular HGB Conc 30.1 g/dL (31.6-35.5); Mean Corpuscular Hemoglobin 31.1 pg (28.0-33.3); Mean Corpuscular Volume 103.3 fL (83.0-100.0); Mean Platelet Volume 10.3 fL (9.4-12.4); Monocytes # 0.2 K/mcL (0.0-1.3); Monocytes % 1.5 %; Platelet Count 248 K/mcL (140-400); Red Cell Distribution Width 17.7 % (11.5-14.5); Segmented Neutrophils % 80.5 %; White Blood Count 13.2 K/mcL (4.3-11.1)
[2019-10-07 02:14] LABS: Neutrophils # 10.6 K/mcL (1.6-8.9)
[2019-10-07 02:30] LABS: Anisocytosis 1+ (Not Present); Macrocytosis Present (Not Present); Platelet Estimate Normal (Normal); Polychromasia 1+ (Not Present)
[2019-10-07 02:31] LABS: Calcium 9.8 mg/dL (8.6-10.3); Magnesium 1.8 mg/dL (1.6-2.6); Phosphorous 5.2 mg/dL (2.7-4.5); Potassium 4.5 mEq/L (3.5-5.1)
[2019-10-07] MEDS ORDERED: *HR* Metoprolol 5 MG/5 ML VIAL IVP ONE (02:40)
[2019-10-07] MEDS: Levalbuterol 1 PUFF INHALER IH SCH ×5 (02:47→21:38)
[2019-10-07 02:56] LABS: Acinetobacter baumannii by PCR Not Detected (Not Detect); Candida albicans by PCR Not Detected (Not Detect); Candida glabrata by PCR Not Detected (Not Detect); Candida krusei by PCR Not Detected (Not Detect); Candida parapsilosis by PCR Not Detected (Not Detect); Candida tropicalis by PCR Not Detected (Not Detect); Enterobacter cloacae Cmplx PCR Not Detected (Not Detect); Enterobacteriaceae by PCR Not Detected (Not Detect); Enterococcus by PCR Not Detected (Not Detect); Escherichia coli by PCR DETECTED (Not Detect); Klebsiella oxytoca by PCR Not Detected (Not Detect); Klebsiella pneumoniae by PCR Not Detected (Not Detect); Proteus by PCR Not Detected (Not Detect); Pseudomonas aeruginosa by PCR Not Detected (Not Detect); Serratia marcescens by PCR Not Detected (Not Detect); Staphylococcus aureus by PCR Not Detected (Not Detect); Staphylococcus by PCR Not Detected (Not Detect); Streptococcus agalactiae(B)PCR Not Detected (Not Detect); Streptococcus by PCR Not Detected (Not Detect); Streptococcus pneumoniae PCR Not Detected (Not Detect); Streptococcus pyogenes (A) PCR Not Detected (Not Detect); blaKPC Carbapenem-Resist Gene Not Detected (Not Detect)
[2019-10-07] MEDS ORDERED: Acetaminophen IV 1,000 MG/100 ML INFUS..BTL IVPB ONE (03:11)
[2019-10-07] MEDS: Aspirin Enteric Coated 81 MG Tablet PO SCH (09:46)
[2019-10-07] MEDS: amLODIPine 5 MG TABLET PO SCH ×2 (10:07→22:18)
[2019-10-07] MEDS: Furosemide 20 MG/2 ML VIAL IVP SCH ×2 (10:07→22:17)
[2019-10-07] MEDS: Metoprolol XL (24 HR) Succ 25 MG TAB.ER.24H PO SCH (10:08)
[2019-10-07] MEDS ORDERED: Aminoglycoside Consult 1 EACH MC ONE (14:45)
[2019-10-07] MEDS ORDERED: Vancomycin 1,250 MG/262.5 ML IV.SOLN IVPB SCH (15:00)
[2019-10-07] MEDS: Azithromycin 500 MG in 0.9 % Sodium Chloride 250 ML IVPB SCH (17:36)
[2019-10-07 21:22] LABS: Bilirubin,Urine Negative (Negative); Blood,Urine Large (Negative); Clarity,Urine Cloudy (Clear); Color,Urine Yellow (Yellow); Glucose,Urine (UA) Normal (Normal); Ketones,Urine Negative (Negative); Leukocyte Esterase,Urine Large (Negative); Nitrite,Urine Negative (Negative); Protein,Urine 100 mg/dL (Neg-Trace); Specific Gravity,Urine 1.022 (1.010-1.025); Urobilinogen,Urine Normal (Normal)
[2019-10-07 21:24] LABS: Hyaline Casts,Urine None Seen per lpf (None-Few); Squamous Epithelial Cell,Urine Many per lpf (None-Few)
[2019-10-07 21:36] LABS: Bacteria,Urine Many per hpf (None-Few); RBC,Urine 50-100 per hpf (0-3); WBC,Urine 50-100 per hpf (0-3)
[2019-10-07] MEDS: Gabapentin 300 MG CAPSULE PO SCH (22:24)
[2019-10-08] MEDS: Cefepime HCl 1,000 MG in 0.9 % Sodium Chloride Mini Bag 100 ML IVPB SCH ×3 (00:33→17:45)
[2019-10-08] MEDS: Levalbuterol 1 PUFF INHALER IH SCH ×4 (04:00→22:17)
[2019-10-08 04:37] LABS: Basophils % 0.3 %; Eosinophils # 0.4 K/mcL (0.0-0.6); Eosinophils % 3.4 %; Hematocrit 31.7 % (35.3-44.9); Immature Granulocytes % 0.7 % (0-4); Lymphocytes # 2.1 K/mcL (0.6-4.6); Lymphocytes % 18.5 %; Mean Corpuscular HGB Conc 30.3 g/dL (31.6-35.5); Mean Corpuscular Hemoglobin 31.1 pg (28.0-33.3); Mean Corpuscular Volume 102.6 fL (83.0-100.0); Mean Platelet Volume 10.5 fL (9.4-12.4); Monocytes # 1.1 K/mcL (0.0-1.3); Monocytes % 9.4 %; Neutrophils # 7.6 K/mcL (1.6-8.9); Platelet Count 203 K/mcL (140-400); Red Blood Count 3.09 M/mcL (3.82-4.97); Red Cell Distribution Width 17.4 % (11.5-14.5); Segmented Neutrophils % 67.7 %; White Blood Count 11.2 K/mcL (4.3-11.1)
[2019-10-08 04:38] LABS: Hemoglobin 9.6 g/dL (11.5-15.4)
[2019-10-08 04:52] LABS: BUN/Creatinine Ratio 46 (6-26); Blood Urea Nitrogen 39 mg/dL (8-23); Calcium 8.9 mg/dL (8.6-10.3); Carbon Dioxide 27 mEq/L (23-29); Chloride 103 mEq/L (98-107); Glucose 124 mg/dL (70-105); Magnesium 1.8 mg/dL (1.6-2.6); Osmolality,Calculated 297 (280-300); Potassium 3.7 mEq/L (3.5-5.1); Sodium 138 mEq/L (136-145); eGFR For African Americans > 60 (> 60); eGFR For Non-African Americans > 60 (> 60)
[2019-10-08] MEDS ORDERED: Furosemide 40 MG/4 ML VIAL IVP SCH (09:00)
[2019-10-08] MEDS: amLODIPine 5 MG TABLET PO SCH ×2 (09:49→21:22)
[2019-10-08] MEDS: Metoprolol XL (24 HR) Succ 25 MG TAB.ER.24H PO SCH (09:49)
[2019-10-08] MEDS: Aspirin Enteric Coated 81 MG Tablet PO SCH (09:49)
[2019-10-08] MEDS: Cyanocobalamin (B-12) 1,000 MCG TABLET PO SCH (17:45)
[2019-10-08] MEDS: Azithromycin 500 MG in 0.9 % Sodium Chloride 250 ML IVPB SCH (17:45)
[2019-10-08] MEDS: Gabapentin 300 MG CAPSULE PO SCH (21:21)
[2019-10-09] MEDS: Cefepime HCl 1,000 MG in 0.9 % Sodium Chloride Mini Bag 100 ML IVPB SCH ×3 (00:54→17:26)
[2019-10-09] MEDS: Levalbuterol 1 PUFF INHALER IH SCH ×4 (03:26→21:31)
[2019-10-09 05:47] LABS: Basophils % 0.4 %; Eosinophils # 0.2 K/mcL (0.0-0.6); Eosinophils % 3.2 %; Hematocrit 29.6 % (35.3-44.9); Immature Granulocytes % 0.4 % (0-4); Lymphocytes # 1.8 K/mcL (0.6-4.6); Lymphocytes % 25.5 %; Mean Corpuscular HGB Conc 30.4 g/dL (31.6-35.5); Mean Corpuscular Volume 102.1 fL (83.0-100.0); Mean Platelet Volume 10.3 fL (9.4-12.4); Monocytes # 0.8 K/mcL (0.0-1.3); Monocytes % 11.4 %; Neutrophils # 4.3 K/mcL (1.6-8.9); Platelet Count 190 K/mcL (140-400); Red Cell Distribution Width 16.8 % (11.5-14.5); Segmented Neutrophils % 59.1 %; White Blood Count 7.2 K/mcL (4.3-11.1)
[2019-10-09 06:08] LABS: BUN/Creatinine Ratio 40 (6-26); Blood Urea Nitrogen 25 mg/dL (8-23); Calcium 8.9 mg/dL (8.6-10.3); Carbon Dioxide 29 mEq/L (23-29); Chloride 103 mEq/L (98-107); Glucose 103 mg/dL (70-105); Magnesium 1.5 mg/dL (1.6-2.6); Osmolality,Calculated 289 (280-300); Potassium 3.4 mEq/L (3.5-5.1); Sodium 137 mEq/L (136-145); eGFR For African Americans > 60 (> 60); eGFR For Non-African Americans > 60 (> 60)
[2019-10-09 06:34] LABS: Folate 20.8 ng/mL (3.0-16.0)
[2019-10-09] MEDS: Aspirin Enteric Coated 81 MG Tablet PO SCH (08:47)
[2019-10-09] MEDS: Furosemide 40 MG TABLET PO SCH (08:47)
[2019-10-09] MEDS: Metoprolol XL (24 HR) Succ 25 MG TAB.ER.24H PO SCH (08:47)
[2019-10-09] MEDS: amLODIPine 5 MG TABLET PO SCH ×2 (08:47→20:59)
[2019-10-09] MEDS ORDERED: Acetaminophen 325 MG TABLET PO PRN (08:56)
[2019-10-09] MEDS ORDERED: *HR* Alteplase (Cathflo) 2 MG VIAL IVP ONE ×2 (09:24→11:11)
[2019-10-09 09:45] LABS: Basophils % 0.5 %; Eosinophils # 0.2 K/mcL (0.0-0.6); Hematocrit 31.1 % (35.3-44.9); Hemoglobin 9.4 g/dL (11.5-15.4); Immature Granulocytes % 0.5 % (0-4); Lymphocytes # 1.8 K/mcL (0.6-4.6); Lymphocytes % 24.4 %; Mean Corpuscular HGB Conc 30.2 g/dL (31.6-35.5); Mean Corpuscular Hemoglobin 30.9 pg (28.0-33.3); Mean Corpuscular Volume 102.3 fL (83.0-100.0); Mean Platelet Volume 10.3 fL (9.4-12.4); Monocytes # 0.8 K/mcL (0.0-1.3); Monocytes % 10.2 %; Neutrophils # 4.5 K/mcL (1.6-8.9); Platelet Count 208 K/mcL (140-400); Red Blood Count 3.04 M/mcL (3.82-4.97); Segmented Neutrophils % 61.4 %; White Blood Count 7.4 K/mcL (4.3-11.1)
[2019-10-09 10:08] LABS: BUN/Creatinine Ratio 40 (6-26); Blood Urea Nitrogen 24 mg/dL (8-23); Carbon Dioxide 30 mEq/L (23-29); Chloride 103 mEq/L (98-107); Glucose 105 mg/dL (70-105); Magnesium 1.5 mg/dL (1.6-2.6); Osmolality,Calculated 290 (280-300); Potassium 3.3 mEq/L (3.5-5.1); Sodium 138 mEq/L (136-145); Troponin I 0.03 ng/mL (< 0.04); eGFR For African Americans > 60 (> 60); eGFR For Non-African Americans > 60 (> 60)
[2019-10-09] MEDS ORDERED: Potassium Chloride 20 MEQ, Lidocaine 1% 2 ML in 0.9 % Sodium Chloride 250 ML IVPB ONE (10:23)
[2019-10-09] MEDS: Gabapentin 300 MG CAPSULE PO SCH (20:57)
[2019-10-10] MEDS: Cefepime HCl 1,000 MG in 0.9 % Sodium Chloride Mini Bag 100 ML IVPB SCH ×3 (00:56→18:43)
[2019-10-10] MEDS ORDERED: *HR* HYDROcodone/Acet 5/325 mg TABLET PO ONE (03:21)
[2019-10-10] MEDS: Levalbuterol 1 PUFF INHALER IH SCH ×4 (03:47→22:25)
[2019-10-10 05:02] LABS: Basophils # 0.1 K/mcL (0.0-0.2); Basophils % 0.6 %; Eosinophils # 0.2 K/mcL (0.0-0.6); Eosinophils % 2.6 %; Hemoglobin 9.4 g/dL (11.5-15.4); Immature Granulocytes % 0.6 % (0-4); Lymphocytes # 2.1 K/mcL (0.6-4.6); Lymphocytes % 26.7 %; Mean Corpuscular HGB Conc 31.3 g/dL (31.6-35.5); Mean Corpuscular Hemoglobin 31.5 pg (28.0-33.3); Mean Corpuscular Volume 100.7 fL (83.0-100.0); Mean Platelet Volume 10.3 fL (9.4-12.4); Monocytes # 0.8 K/mcL (0.0-1.3); Monocytes % 10.3 %; Neutrophils # 4.6 K/mcL (1.6-8.9); Platelet Count 222 K/mcL (140-400); Red Blood Count 2.98 M/mcL (3.82-4.97); Red Cell Distribution Width 16.6 % (11.5-14.5); Segmented Neutrophils % 59.2 %; White Blood Count 7.8 K/mcL (4.3-11.1)
[2019-10-10 05:24] LABS: BUN/Creatinine Ratio 35 (6-26); Blood Urea Nitrogen 18 mg/dL (8-23); Calcium 8.8 mg/dL (8.6-10.3); Carbon Dioxide 28 mEq/L (23-29); Chloride 104 mEq/L (98-107); Glucose 101 mg/dL (70-105); Magnesium 1.6 mg/dL (1.6-2.6); Osmolality,Calculated 288 (280-300); Potassium 3.8 mEq/L (3.5-5.1); Sodium 138 mEq/L (136-145); eGFR For African Americans > 60 (> 60); eGFR For Non-African Americans > 60 (> 60)
[2019-10-10] MEDS: Aspirin Enteric Coated 81 MG Tablet PO SCH (10:50)
[2019-10-10] MEDS: Metoprolol XL (24 HR) Succ 25 MG TAB.ER.24H PO SCH (10:50)
[2019-10-10] MEDS: amLODIPine 5 MG TABLET PO SCH ×2 (10:51→21:11)
[2019-10-10] MEDS: Furosemide 40 MG TABLET PO SCH (10:51)
[2019-10-10] MEDS: Gabapentin 300 MG CAPSULE PO SCH (21:11)
[2019-10-11] MEDS: Cefepime HCl 1,000 MG in 0.9 % Sodium Chloride Mini Bag 100 ML IVPB SCH ×2 (00:38→08:49)
[2019-10-11 03:01] LABS: Basophils # 0.1 K/mcL (0.0-0.2); Basophils % 0.6 %; Eosinophils # 0.3 K/mcL (0.0-0.6); Eosinophils % 2.5 %; Hemoglobin 9.8 g/dL (11.5-15.4); Immature Granulocytes % 1.1 % (0-4); Lymphocytes # 2.5 K/mcL (0.6-4.6); Lymphocytes % 24.2 %; Mean Corpuscular HGB Conc 31.6 g/dL (31.6-35.5); Mean Corpuscular Hemoglobin 31.7 pg (28.0-33.3); Mean Corpuscular Volume 100.3 fL (83.0-100.0); Mean Platelet Volume 10.2 fL (9.4-12.4); Monocytes # 1.1 K/mcL (0.0-1.3); Monocytes % 10.3 %; Neutrophils # 6.3 K/mcL (1.6-8.9); Platelet Count 215 K/mcL (140-400); Red Blood Count 3.09 M/mcL (3.82-4.97); Red Cell Distribution Width 16.3 % (11.5-14.5); Segmented Neutrophils % 61.3 %; White Blood Count 10.2 K/mcL (4.3-11.1)
[2019-10-11] MEDS: Levalbuterol 1 PUFF INHALER IH SCH ×2 (03:21→10:08)
[2019-10-11 03:22] LABS: BUN/Creatinine Ratio 31 (6-26); Blood Urea Nitrogen 16 mg/dL (8-23); Calcium 8.9 mg/dL (8.6-10.3); Carbon Dioxide 28 mEq/L (23-29); Chloride 101 mEq/L (98-107); Glucose 97 mg/dL (70-105); Magnesium 1.5 mg/dL (1.6-2.6); Osmolality,Calculated 283 (280-300); Potassium 3.8 mEq/L (3.5-5.1); Sodium 136 mEq/L (136-145); eGFR For African Americans > 60 (> 60); eGFR For Non-African Americans > 60 (> 60)
[2019-10-11] MEDS: amLODIPine 5 MG TABLET PO SCH (08:50)
[2019-10-11] MEDS: Furosemide 40 MG TABLET PO SCH (08:50)
[2019-10-11] MEDS: Metoprolol XL (24 HR) Succ 25 MG TAB.ER.24H PO SCH (08:50)
[2019-10-11] MEDS: Aspirin Enteric Coated 81 MG Tablet PO SCH (08:53)
[2019-10-11] MEDS ORDERED: Azithromycin 250 MG TABLET PO SCH (10:30)
[2019-10-11 10:33] VITALS: BP 130/79
[2019-10-11] MEDS ORDERED: Cefdinir 300 MG CAPSULE PO SCH (21:00)
== END 2019-10-11 14:46 | DRG 871 ==
LOC: 2NENU 11:53 → EMEROOARM 11:53 → SUATTDRO 16:09 → 2NENU 17:43 → 3ANU 10-07 20:52
PROVIDERS: ADMIT Family Medicine; ATTEND Pharmacist